=== PATIENT | male | born 1950 | race Caucasian/White ===

== ENCOUNTER 2018-11-01 17:38 | Inpatient (IN) | payer MEDICARE ==
[2018-11-01] MEDS ORDERED: traMADol HCl 50 MG TAB PO PRN (20:44)
[2018-11-01] MEDS: Lisinopril 10 MG TAB PO SCH (21:40)
[2018-11-01] MEDS: Pravastatin Sodium 40 MG TAB PO SCH (21:42)
[2018-11-01] MEDS: Apixaban 5 MG TAB PO SCH (21:44)
[2018-11-02] MEDS: Tamsulosin HCl 0.4 MG CAP PO SCH (08:37)
[2018-11-02] MEDS: Multivitamin W/ Minerals 1 TAB PO SCH (08:37)
[2018-11-02] MEDS: Aspirin 81 mg Enteric Coated Tablet PO SCH (08:38)
[2018-11-02] MEDS: Lisinopril 10 MG TAB PO SCH ×2 (08:38→21:26)
[2018-11-02] MEDS: Cyanocobalamin (Vitamin B-12) 1,000 MCG TAB PO SCH (08:38)
[2018-11-02] MEDS: Colchicine 0.6 MG TAB PO SCH (08:39)
[2018-11-02] MEDS: Furosemide 40 MG TAB PO SCH ×2 (08:40→16:58)
[2018-11-02] MEDS: glipiZIDE 5 MG TAB PO SCH ×2 (08:40→16:59)
[2018-11-02] MEDS: Atenolol 25 MG TAB PO SCH (08:41)
[2018-11-02] MEDS: Famotidine 20 MG TAB PO SCH (08:43)
[2018-11-02] MEDS: Apixaban 5 MG TAB PO SCH ×2 (08:45→21:25)
[2018-11-02] MEDS ORDERED: RANITIDINE HCL 75 MG PO SCH (09:00)
[2018-11-02] MEDS ORDERED: Pioglitazone HCl 15 MG TAB PO SCH (09:00)
[2018-11-02] MEDS: HYDROcodone/Acetaminophen 10/325 mg Tablet PO PRN ×2 (17:02→21:25)
[2018-11-02] MEDS ORDERED: Bisacodyl 10 MG SUPP PR PRN (18:06)
[2018-11-02 19:28] LABS: #Basophils 0.1 thou/uL (0.0-0.2); #Eosinphils 0.6 thou/uL (0.0-0.7); #Monocytes 0.9 thou/uL (0.11-0.59); #Neutrophils 10.8 thou/uL (1.40-6.50); %Basophils 0.6 % (0.0-1.0); %Eosinophils 3.9 % (0.0-10.0); %Lymphocytes 14.1 % (21.0-51.0); %Monocytes 6.2 % (0.0-10.0); %Neutrophils 75.3 % (42.0-75.0); Hemoglobin 9.6 g/dL (14.0-18.0); Mean Corpuscular Hemoglobin 30.8 pg (27.0-31.0); Mean Corpuscular Volume 93.5 fL (78.0-98.0); Mean Platelet Volume 7.2 fL (7.4-10.4); Platelet Count 270 thou/uL (130-400); RBC Distribution Width 15.3 % (11.5-14.5); Red Blood Cell (RBC) Count 3.12 mill/uL (4.70-6.10); White Blood Cell (WBC) Count 14.3 thou/uL (4.8-10.8)
[2018-11-02 19:57] LABS: ALT (SGPT) 14 U/L (8-55); AST (SGOT) 10 U/L (5-34); Albumin 3.4 g/dL (3.4-4.8); Alkaline Phosphatase 78 U/L (40-150); Anion Gap 14 mmol/L (10-20); BUN (Urea Nitrogen) 51 mg/dL (8.4-25.7); Bilirubin, Total 0.4 mg/dL (0.2-1.2); Calc. Creatinine Clearance 72 mL/min (70-130); Calcium 9.3 mg/dL (7.8-10.44); Carbon Dioxide 26 mmol/L (23-31); Chloride 101 mmol/L (98-107); Estimated GFR-MDRD 33; Globulin 2.7 g/dL (2.4-3.5); Glucose 209 mg/dL (80-115); Potassium 3.9 mmol/L (3.5-5.1); Protein, Total 6.1 g/dL (5.8-8.1); Sodium 137 mmol/L (136-145); Uric Acid 11.7 mg/dL (3.5-7.2)
[2018-11-02] MEDS: Pravastatin Sodium 40 MG TAB PO SCH (21:26)
[2018-11-03] MEDS: HYDROcodone/Acetaminophen 10/325 mg Tablet PO PRN ×2 (01:26→19:59)
[2018-11-03] MEDS ORDERED: Dextrose 50% Abboject 50 ML SYRINGE SLOW IVP PRN (06:04)
[2018-11-03] MEDS ORDERED: Dextrose 5% in Water 1,000 ML IV PRN (06:04)
[2018-11-03] MEDS: HumaLOG 300 UNITS/3 ML VIAL SC PRN ×4 (06:23→19:58)
--- NOTE | 2018-11-03 06:37 | PRG ---
DATE OF SERVICE: 11/02/[address] Arielle White. SUBJECTIVE: The patient feels well. No complaints. Controlled pain on tramadol. He is asking about his diuretics and explained that he is requiring diuretics with stable chronic kidney disease stage 4 to keep him from becoming more edematous. He is denying shortness of breath or chest pain. OBJECTIVE: VITAL SIGNS: Shows temperature of 98.2, pulse 62, respirations 18, O2 saturation of 96% on room air, blood pressure 103/51. LUNGS: Clear. CARDIAC: Showed regular rhythm. ABDOMEN: Soft and nontender, but obese. SKIN/EXTREMITIES: Showed 1+ edema of the left leg with decreased pedal pulses. LABORATORY DATA: Shows white count still elevated at 14,300, hematocrit 29, hemoglobin 9.6. Sodium 137, potassium 3.9, chloride 101, bicarb 26, BUN 51, creatinine 2.04, glucose 209. Uric acid 11.7, calcium 9.3, total bilirubin 0.4, AST 10, ALT 14, albumin 3.4, globulin 2.7. Right ghjbl-wja-iabw amputation has bandage with minimal tenderness and swelling. ASSESSMENT: 1. Uncontrolled diabetes on pioglitazone and glipizide, and we will discuss insulin therapy with the patient and start on sliding scale. 2. Gout with persistent hyperuricemia despite being on Uloric in the past, although this is not available at this time. We will hopefully see if the patient can obtain it from home. 3. Paroxysmal atrial fibrillation with rate controlled on anticoagulation, asymptomatic at this time. 4. Recurrent deep vein thrombosis, pulmonary embolus, on anticoagulation. 5. Coronary artery disease, asymptomatic at this time. 6. Benign prostatic hypertrophy, stable on tamsulosin. PLAN: 1. Repeat basic metabolic profile, uric acid in the a.m. and attempt to obtain Uloric. 2. Increase furosemide to 80 twice daily, this is what the patient was taking previously. We will monitor renal function closely. 3. Start sliding scale. Monitor Accu-Cheks. 4. Start PT and OT on Sunday. Job ID: [id number]
--- NOTE | 2018-11-03 08:48 | PRG ---
DATE OF SERVICE: 11/03/2018 SUBJECTIVE: The patient is sitting up in the bed. He states he is having persistent pain in his right BKA stump and did not sleep well last night. However, he states he does not sleep well at all in the hospital ever. He has had no fever, chills, or sweats. He does state that he has had to use his personal febuxostat medication they cannot receive it, and he has not received it here also, and we will attempt to get another bottle from home. He also states that he does not wish to be on a lactose-free diet as he will take Lactaid as needed from his personal supply, and finally, he states that he was not taking pioglitazone regularly at home and would like to only take the glipizide and sliding scale here. OBJECTIVE: VITAL SIGNS: Show blood pressure is 96/53, temperature is 98, pulse 62, respirations 18, and O2 sats 96% on room air. LUNGS: Clear. CARDIAC: Shows regular rhythm. ABDOMEN: Obese and nontender. SKIN/EXTREMITIES: Show right BKA stump undressed and appears to be healing well with no erythema, had only minimal drainage and tenderness. ASSESSMENT: 1. Resolving right below-knee amputation with no evidence of an infection despite persistent elevation of white count, and we will repeat white count in the a.m., and may reconsider oral antibiotics. 2. Type 2 diabetes with a fair control on sliding scale, and we will continue this as the patient wishes to discontinue his pioglitazone as he was not taking this routinely at home. 3. Chronic kidney disease, stage 4, stable, GFR of 30 to 33, and we will continue furosemide 80 twice daily as he was taking previously. 4. Paroxysmal atrial fibrillation, appears to be in regular rhythm at this time. 5. Recurrent deep vein thrombosis, prophylaxis on apixaban. PLAN: 1. Discontinue lactose-free diet. 2. Discontinue pioglitazone at the patient's request. Continue sliding scale. 3. Repeat CBC and basic metabolic profile in the a.m. 4. Continue wound care and start PT and OT tomorrow. Job ID: [id number]
[2018-11-03] MEDS ORDERED: Furosemide 80 MG TAB PO SCH (09:00)
--- NOTE | 2018-11-03 09:14 | HP ---
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 He has had no complications and has been admitted to [facility] Skilled Unit for further PT and OT. He does have comorbidities as mentioned above of recurrent DVTs and is on chronic anticoagulation. He also has significant chronic kidney disease stage 4 with a GFR around 30 and has been monitoring closely with Nephrology, Dr. Wilson, on furosemide 80 mg a day for his recurrent bilateral leg edema. He has history also of atrial fibrillation diagnosed in 2012 and atrial flutter diagnosed in 2017, requiring cardioversion but with paroxysmal atrial fib intermittently since that time. He has had a cardiac PET scan in January 2018, showing a reversible anterior defect consistent with an ischemia but with normal LV systolic function with EF of 55% to 60%. He has been found to have significant peripheral vascular disease, but because of his chronic kidney disease, it was felt that arteriograms would possibly cause him to convert to end-stage renal disease and therefore this was not done. He also has a history of aortic sclerosis without stenosis diagnosed in 2016 and had pulmonary embolus in 2012. Finally, he has a history also of hyperlipidemia and benign prostatic hypertrophy. PAST MEDICAL HISTORY: He also has a history of gout. PAST SURGICAL HISTORY: Positive for vasectomy, arthroscopy, multiple right foot surgeries, correction of his post-polio defects, and a kidney and bladder surgery of unknown type in 2013 with urostomy. SOCIAL HISTORY: He lives alone. He has a past history of smoking, but none since 1977. He drinks rarely. ALLERGIES: HE HAS NO KNOWN ALLERGIES. MEDICATIONS: On presentation to [facility] included; 1. Apixaban 5 mg twice daily. 2. Aspirin 81 daily. 3. Atenolol 100 daily. 4. Colchicine 0.6 mg daily. 5. Uloric 80 mg daily. 6. Furosemide 80 mg twice daily. 7. Glipizide 10 mg twice daily. 8. Lisinopril 10 mg twice daily. 9. Pioglitazone 15 mg daily. 10. Pravastatin 40 mg nightly. 11. Ranitidine 75 mg daily. 12. Tamsulosin 0.4 mg daily. 13. Tramadol 50 mg every 6 hours as needed for pain. REVIEW OF SYSTEMS: HEENT: Denies any headaches, dizziness, change in vision or hearing, hoarseness, or dysphagia. PULMONARY: Denies any cough, sputum production, recent pneumonia, asthma, tuberculosis. CARDIOVASCULAR: Denies any chest pain or dyspnea at rest, but is wheelchair-bound and nonambulatory secondary to his BKA and previous polio. GASTROINTESTINAL: He denies nausea, vomiting, diarrhea, constipation, or abdominal pain. GENITOURINARY: He has some mild decreased stream and nocturia, but no dysuria or hematuria. MUSCULOSKELETAL: He has a healing right eqpyh-elp-cnkf amputation with no particular swelling, erythema, that is managed. NEUROLOGIC: He has a decreased strength in the left leg but with normal sensation. PHYSICAL EXAMINATION: GENERAL: The patient is a middle-aged obese white male, in no acute distress at rest, oriented x3 and cooperative. VITAL SIGNS: Show a temperature of 97.5, pulse 60, respirations 18, O2 sats 100% on room air, and blood pressure is 115/61. HEENT: Pupils are equal, round, and reactive to light and accommodation. Sclerae are anicteric. Conjunctivae are pale. Oral mucous membranes are well hydrated. NECK: Supple. There are nodes or masses. JVP is not elevated. LUNGS: Clear with decreased breath sounds in the bases. CARDIAC: Shows irregular rhythm. No gallops or murmurs. ABDOMEN: Obese and nontender. SKIN/EXTREMITIES: Show healing right bxsll-jiq-geoj amputation, right leg. Trace edema of the left leg. Decreased pedal pulse on the left. NEUROLOGIC: Cranial nerves intact. Deep tendon reflex 2+ and equal. There are absent Babinski's. LABORATORY DATA: Laboratory not done on admission. Most recent laboratories do show a creatinine of 2.4 at [facility] and these will be repeated in the a.m. ASSESSMENT AND PLAN: 1. Severe peripheral vascular disease, status post right agzsz-qmi-gafa amputation for ischemic gangrene, appears to be healing well. 2. Chronic kidney disease, stage 4, being followed by Nephrology and we will follow closely. 3. Recurrent edema, on furosemide apparently with the consent of Nephrology and primary care physician and we will continue on this and monitor renal function to maintain GFR of a stable rate of 30. 4. Chronic gout, on Uloric and we will check uric acid level, appears to be asymptomatic. 5. Paroxysmal atrial fibrillation, on rate control and anticoagulation with apixaban with no symptoms at this time. 6. Recurrent deep vein thrombosis and pulmonary embolus, being prophylaxed with apixaban. 7. Coronary artery disease with abnormal PET scan with mild ventricular inferior ischemia, but with normal ejection fraction of 55% to 60%. 8. Type 2 diabetes, fairly controlled on pioglitazone and glipizide and will continue on this, we will monitor with [employer]. Job ID: [id number]
[2018-11-03] MEDS: Furosemide 80 MG TAB PO SCH ×2 (09:28→14:14)
[2018-11-03] MEDS: Lisinopril 10 MG TAB PO SCH ×2 (09:28→19:59)
[2018-11-03] MEDS: Cyanocobalamin (Vitamin B-12) 1,000 MCG TAB PO SCH (09:28)
[2018-11-03] MEDS: Tamsulosin HCl 0.4 MG CAP PO SCH (09:29)
[2018-11-03] MEDS: Famotidine 20 MG TAB PO SCH (09:29)
[2018-11-03] MEDS: Multivitamin W/ Minerals 1 TAB PO SCH (09:29)
[2018-11-03] MEDS: Aspirin 81 mg Enteric Coated Tablet PO SCH (09:30)
[2018-11-03] MEDS: glipiZIDE 5 MG TAB PO SCH ×2 (09:30→17:07)
[2018-11-03] MEDS: Apixaban 5 MG TAB PO SCH ×2 (09:30→19:59)
[2018-11-03] MEDS: Colchicine 0.6 MG TAB PO SCH (09:30)
[2018-11-03] MEDS: Atenolol 25 MG TAB PO SCH (09:31)
[2018-11-03] MEDS: Pravastatin Sodium 40 MG TAB PO SCH (20:00)
[2018-11-04 05:33] LABS: #Basophils 0.1 thou/uL (0.0-0.2); #Eosinphils 0.7 thou/uL (0.0-0.7); #Lymphocytes 1.8 thou/uL (1.20-3.40); #Monocytes 0.8 thou/uL (0.11-0.59); #Neutrophils 7.5 thou/uL (1.40-6.50); %Basophils 1.1 % (0.0-1.0); %Lymphocytes 16.6 % (21.0-51.0); %Monocytes 7.6 % (0.0-10.0); %Neutrophils 68.8 % (42.0-75.0); Hemoglobin 9.5 g/dL (14.0-18.0); Mean Corpuscular HGB CONC 31.8 g/dL (32.0-36.0); Mean Corpuscular Volume 94.4 fL (78.0-98.0); Mean Platelet Volume 7.5 fL (7.4-10.4); Platelet Count 246 thou/uL (130-400); RBC Distribution Width 15.4 % (11.5-14.5); Red Blood Cell (RBC) Count 3.17 mill/uL (4.70-6.10); White Blood Cell (WBC) Count 10.9 thou/uL (4.8-10.8)
[2018-11-04 05:47] LABS: Anion Gap 15 mmol/L (10-20); BUN (Urea Nitrogen) 56 mg/dL (8.4-25.7); Calc. Creatinine Clearance 69 mL/min (70-130); Carbon Dioxide 22 mmol/L (23-31); Chloride 105 mmol/L (98-107); Estimated GFR-MDRD 31; Glucose 194 mg/dL (80-115); Sodium 138 mmol/L (136-145)
[2018-11-04] MEDS: HumaLOG 300 UNITS/3 ML VIAL SC PRN ×2 (05:52→12:36)
[2018-11-04] MEDS: Apixaban 5 MG TAB PO SCH ×2 (08:10→20:07)
[2018-11-04] MEDS: glipiZIDE 5 MG TAB PO SCH ×2 (08:10→17:03)
[2018-11-04] MEDS: Atenolol 25 MG TAB PO SCH (08:11)
[2018-11-04] MEDS: Aspirin 81 mg Enteric Coated Tablet PO SCH (08:11)
[2018-11-04] MEDS: Colchicine 0.6 MG TAB PO SCH (08:12)
[2018-11-04] MEDS: Famotidine 20 MG TAB PO SCH (08:12)
[2018-11-04] MEDS: Cyanocobalamin (Vitamin B-12) 1,000 MCG TAB PO SCH (08:12)
[2018-11-04] MEDS: Furosemide 80 MG TAB PO SCH ×2 (08:13→14:52)
[2018-11-04] MEDS: Lisinopril 10 MG TAB PO SCH ×2 (08:13→20:07)
[2018-11-04] MEDS: Multivitamin W/ Minerals 1 TAB PO SCH (08:14)
[2018-11-04] MEDS: HYDROcodone/Acetaminophen 10/325 mg Tablet PO PRN ×2 (08:14→20:06)
[2018-11-04] MEDS: Tamsulosin HCl 0.4 MG CAP PO SCH (08:14)
--- NOTE | 2018-11-04 14:01 | PRG ---
DATE OF SERVICE: 11/04/2018 SUBJECTIVE: Mr. Joe is doing well. He is up in his bed. Denies any fever, chills, chest pain, or shortness of breath. He is tolerating his medications. No family at bedside. He denies any increasing pain at this time, any drainage, no redness. OBJECTIVE: GENERAL: He is afebrile. Heart rate is 58, respirations 18, oxygen saturation 97% on room air, blood pressure 132/58. CARDIOVASCULAR: S1 and S2 plus. RESPIRATORY: Normal vesicular breath sounds. ABDOMEN: Soft, obese, nontender. Bowel sounds heard in all quadrants. EXTREMITIES: Without cyanosis or clubbing. Right BKA stump with dressing. Healed scab over the posterior aspect of his left calf. He apparently also has a superficial abrasion/decubitus in his right gluteal region close to his scrotum. CENTRAL NERVOUS SYSTEM: Generalized weakness. LABORATORY VALUES: Sodium 138, potassium 4.0, BUN and creatinine of 56 and 2.14. Blood sugars are 222, 212, 211, 209. White count is down to 10.9, H and H is 9.5 and 29.9. IMPRESSION: 1. Right leg ischemic necrosis and gangrene, requiring right below knee amputation. 2. Chronic kidney disease, stage 4. 3. Diabetes mellitus type 2. 4. Atrial fibrillation, on anticoagulation. 5. Gout. 6. Morbid obesity. 7. Dyslipidemia. 8. Benign prostatic hypertrophy. 9. Lower extremity venous insufficiency and history of post-polio syndrome. PLAN: 1. Continue current medications. 2. Consult Wound Care for care of his stump incision. 3. 1800 calorie heart healthy ADA diet. 4. The patient is tolerating regular diet and states he does not want lactose-free. 5. DVT prophylaxis. He is on apixaban. 6. Stress ulcer prophylaxis. He is on Zantac. 7. Decubitus precautions. 8. Physical Therapy evaluation and treatment. 9. Routine laboratory values. 10. Encourage the patient to participate with therapy. 11. No family at bedside. 12. Discussed with the patient and nursing. Job ID: [id number]
[2018-11-04] MEDS: Pravastatin Sodium 40 MG TAB PO SCH (20:05)
[2018-11-05] MEDS: HYDROcodone/Acetaminophen 10/325 mg Tablet PO PRN ×4 (03:46→20:56)
[2018-11-05] MEDS: glipiZIDE 5 MG TAB PO SCH ×2 (08:23→16:33)
[2018-11-05] MEDS: Apixaban 5 MG TAB PO SCH ×2 (08:24→20:24)
[2018-11-05] MEDS: Colchicine 0.6 MG TAB PO SCH (08:24)
[2018-11-05] MEDS: Aspirin 81 mg Enteric Coated Tablet PO SCH (08:24)
[2018-11-05] MEDS: Multivitamin W/ Minerals 1 TAB PO SCH (08:25)
[2018-11-05] MEDS: Lisinopril 10 MG TAB PO SCH ×2 (08:25→20:24)
[2018-11-05] MEDS: Furosemide 80 MG TAB PO SCH ×2 (08:25→15:00)
[2018-11-05] MEDS: Febuxostat [Uloric] 80 MG PO SCH (08:25)
[2018-11-05] MEDS: Famotidine 20 MG TAB PO SCH (08:25)
[2018-11-05] MEDS: Cyanocobalamin (Vitamin B-12) 1,000 MCG TAB PO SCH (08:25)
[2018-11-05] MEDS: Tamsulosin HCl 0.4 MG CAP PO SCH (08:26)
[2018-11-05] MEDS: Atenolol 25 MG TAB PO SCH (08:31)
[2018-11-05] MEDS: HumaLOG 300 UNITS/3 ML VIAL SC PRN ×3 (11:14→20:22)
--- NOTE | 2018-11-05 15:41 | PRG ---
DATE OF SERVICE: 11/05/2018 SUBJECTIVE: Mr. Joe is doing the same. Denies any complaints. Wound Care assisted his incision and he apparently had some Xeroform on it. They are not sure what to do. I advised them to contact the surgeon Dr. Kennedy to find out exactly what kind of wound care it needs and if it is just a routine, then I am pretty sure that nursing can manage it. The patient denies any fever or chills. No concerns or questions. No family at bedside. OBJECTIVE: VITAL SIGNS: He is afebrile. Heart rate is 57, respirations are 20, oxygen saturation 98%, blood pressure 103/59. CARDIOVASCULAR: S1, S2 plus. RESPIRATORY: Normal vesicular breath sounds. ABDOMEN: Soft, obese, nontender. Bowel sounds heard in all four quadrants. EXTREMITIES: Without cyanosis, clubbing. Right BKA. IMPRESSION: 1. Peripheral vascular disease with gangrene requiring right below-knee amputation. 2. Chronic kidney disease, stage 4. 3. Diabetes mellitus type 2. 4. Atrial fibrillation, on Eliquis. 5. Gout. 6. Morbid obesity. 7. Dyslipidemia. 8. Benign prostatic hypertrophy. 9. Lower extremity venous insufficiency. 10. Postpolio syndrome. PLAN: 1. Continue current medications. 2. I discussed with Finch at Wound Care. She is going to contact Dr. Kennedy to find out exactly what he wants to be done with the incision. If it is just routine care, then she is going to inform nursing and have them manage it. 3. 1800 calorie heart-healthy ADA diet. 4. DVT and stress ulcer prophylaxis. 5. Decubitus precautions. 6. Continue Eliquis and his Uloric from home. 7. Colchicine p.r.n. 8. Routine laboratory values. 9. Discussed with the patient and nursing in detail. All questions answered. Job ID: [id number]
[2018-11-05] MEDS: Pravastatin Sodium 40 MG TAB PO SCH (20:25)
[2018-11-06 05:16] LABS: #Basophils 0.1 thou/uL (0.0-0.2); #Eosinphils 0.6 thou/uL (0.0-0.7); #Monocytes 0.9 thou/uL (0.11-0.59); #Neutrophils 7.5 thou/uL (1.40-6.50); %Basophils 0.9 % (0.0-1.0); %Eosinophils 5.5 % (0.0-10.0); %Lymphocytes 18.3 % (21.0-51.0); %Monocytes 7.6 % (0.0-10.0); %Neutrophils 67.7 % (42.0-75.0); Hemoglobin 9.3 g/dL (14.0-18.0); Mean Corpuscular HGB CONC 31.7 g/dL (32.0-36.0); Mean Corpuscular Volume 94.7 fL (78.0-98.0); Mean Platelet Volume 7.4 fL (7.4-10.4); Platelet Count 233 thou/uL (130-400); RBC Distribution Width 15.5 % (11.5-14.5); Red Blood Cell (RBC) Count 3.08 mill/uL (4.70-6.10); White Blood Cell (WBC) Count 11.1 thou/uL (4.8-10.8)
[2018-11-06] MEDS: HumaLOG 300 UNITS/3 ML VIAL SC PRN ×2 (05:22→12:21)
[2018-11-06 05:29] LABS: Anion Gap 14 mmol/L (10-20); BUN (Urea Nitrogen) 59 mg/dL (8.4-25.7); Calc. Creatinine Clearance 60 mL/min (70-130); Calcium 9.1 mg/dL (7.8-10.44); Carbon Dioxide 23 mmol/L (23-31); Chloride 106 mmol/L (98-107); Estimated GFR-MDRD 26; Glucose 190 mg/dL (80-115); Potassium 4.3 mmol/L (3.5-5.1); Sodium 139 mmol/L (136-145)
[2018-11-06] MEDS: glipiZIDE 5 MG TAB PO SCH ×2 (07:30→15:45)
[2018-11-06] MEDS: Colchicine 0.6 MG TAB PO SCH (09:22)
[2018-11-06] MEDS: Atenolol 25 MG TAB PO SCH (09:22)
[2018-11-06] MEDS: Furosemide 80 MG TAB PO SCH ×2 (09:22→14:45)
[2018-11-06] MEDS: Tamsulosin HCl 0.4 MG CAP PO SCH (09:23)
[2018-11-06] MEDS: Cyanocobalamin (Vitamin B-12) 1,000 MCG TAB PO SCH (09:23)
[2018-11-06] MEDS: Aspirin 81 mg Enteric Coated Tablet PO SCH (09:24)
[2018-11-06] MEDS: Multivitamin W/ Minerals 1 TAB PO SCH (09:24)
[2018-11-06] MEDS: Apixaban 5 MG TAB PO SCH ×2 (09:24→20:39)
[2018-11-06] MEDS: Famotidine 20 MG TAB PO SCH (09:24)
[2018-11-06] MEDS: Lisinopril 10 MG TAB PO SCH ×2 (09:25→20:40)
[2018-11-06] MEDS: Febuxostat [Uloric] 80 MG PO SCH (09:26)
[2018-11-06] MEDS: HYDROcodone/Acetaminophen 10/325 mg Tablet PO PRN ×3 (09:31→20:43)
[2018-11-06] MEDS: Pravastatin Sodium 20 MG TAB PO SCH (20:41)
[2018-11-06] MEDS: POTASSIUM CITRATE 5 MEQ PO SCH (20:41)
[2018-11-07] MEDS: HumaLOG 300 UNITS/3 ML VIAL SC PRN ×2 (05:56→11:49)
[2018-11-07] MEDS: glipiZIDE 5 MG TAB PO SCH ×2 (07:36→14:05)
[2018-11-07] MEDS: POTASSIUM CITRATE 5 MEQ PO SCH ×3 (08:35→20:25)
[2018-11-07] MEDS: Febuxostat [Uloric] 80 MG PO SCH (08:35)
[2018-11-07] MEDS: Cyanocobalamin (Vitamin B-12) 1,000 MCG TAB PO SCH (08:35)
[2018-11-07] MEDS: Lisinopril 10 MG TAB PO SCH ×3 (08:36→20:26)
[2018-11-07] MEDS: Apixaban 5 MG TAB PO SCH ×2 (08:36→20:22)
[2018-11-07] MEDS: Atenolol 25 MG TAB PO SCH (08:36)
[2018-11-07] MEDS: Aspirin 81 mg Enteric Coated Tablet PO SCH (08:36)
[2018-11-07] MEDS: Famotidine 20 MG TAB PO SCH (08:37)
[2018-11-07] MEDS: Furosemide 80 MG TAB PO SCH ×2 (08:37→14:05)
[2018-11-07] MEDS: Tamsulosin HCl 0.4 MG CAP PO SCH (08:37)
[2018-11-07] MEDS: Multivitamin W/ Minerals 1 TAB PO SCH (08:37)
[2018-11-07] MEDS: Colchicine 0.6 MG TAB PO SCH (08:37)
[2018-11-07] MEDS: Pravastatin Sodium 20 MG TAB PO SCH (20:22)
[2018-11-07] MEDS: HYDROcodone/Acetaminophen 10/325 mg Tablet PO PRN (20:23)
[2018-11-08] MEDS: glipiZIDE 5 MG TAB PO SCH ×2 (08:51→17:04)
[2018-11-08] MEDS: Atenolol 25 MG TAB PO SCH (08:52)
[2018-11-08] MEDS: Famotidine 20 MG TAB PO SCH (08:54)
[2018-11-08] MEDS: Cyanocobalamin (Vitamin B-12) 1,000 MCG TAB PO SCH (08:54)
[2018-11-08] MEDS: Furosemide 80 MG TAB PO SCH ×2 (08:55→15:01)
[2018-11-08] MEDS: Aspirin 81 mg Enteric Coated Tablet PO SCH (08:55)
[2018-11-08] MEDS: Tamsulosin HCl 0.4 MG CAP PO SCH (08:55)
[2018-11-08] MEDS: Colchicine 0.6 MG TAB PO SCH (08:56)
[2018-11-08] MEDS: Lisinopril 10 MG TAB PO SCH ×2 (08:56→20:22)
[2018-11-08] MEDS: Apixaban 5 MG TAB PO SCH ×2 (08:56→20:22)
[2018-11-08] MEDS: Multivitamin W/ Minerals 1 TAB PO SCH (08:56)
[2018-11-08] MEDS: Febuxostat [Uloric] 80 MG PO SCH (09:10)
[2018-11-08] MEDS: POTASSIUM CITRATE 5 MEQ PO SCH ×3 (09:11→20:25)
[2018-11-08] MEDS: HumaLOG 300 UNITS/3 ML VIAL SC PRN (12:05)
[2018-11-08] MEDS: Pravastatin Sodium 20 MG TAB PO SCH (20:22)
[2018-11-09] MEDS: HumaLOG 300 UNITS/3 ML VIAL SC PRN ×3 (05:14→16:34)
[2018-11-09] MEDS: Apixaban 5 MG TAB PO SCH ×2 (08:29→20:30)
[2018-11-09] MEDS: glipiZIDE 5 MG TAB PO SCH ×2 (08:29→16:34)
[2018-11-09] MEDS: Aspirin 81 mg Enteric Coated Tablet PO SCH (08:30)
[2018-11-09] MEDS: Atenolol 25 MG TAB PO SCH (08:30)
[2018-11-09] MEDS: Colchicine 0.6 MG TAB PO SCH (08:31)
[2018-11-09] MEDS: Famotidine 20 MG TAB PO SCH (08:32)
[2018-11-09] MEDS: Furosemide 80 MG TAB PO SCH ×2 (08:32→14:13)
[2018-11-09] MEDS: Cyanocobalamin (Vitamin B-12) 1,000 MCG TAB PO SCH (08:32)
[2018-11-09] MEDS: Lisinopril 10 MG TAB PO SCH (08:33)
[2018-11-09] MEDS: Multivitamin W/ Minerals 1 TAB PO SCH (08:33)
[2018-11-09] MEDS: POTASSIUM CITRATE 5 MEQ PO SCH ×3 (08:34→20:30)
[2018-11-09] MEDS: Febuxostat [Uloric] 80 MG PO SCH (08:34)
[2018-11-09] MEDS: Tamsulosin HCl 0.4 MG CAP PO SCH (08:35)
--- NOTE | 2018-11-09 16:52 | PRG ---
DATE OF SERVICE: 11/09/2018 SUBJECTIVE: Mr. Joe is doing the same. He apparently had a couple of bowel movements today, but they were just semisolid. I did order some Imodium in case it turns into loose stools. I also ordered a stool for C diff. I examined his stump incision and it looks healthy, just the midline area of the incision, there is a little bit of erythema, but the skin is not warm, not shiny, not tender, not fluctuant. It does not suggest any infection. There is no drainage. Again, discussed with the patient about possible antidepressant and he does not want to do it. He states that he is getting weaker, and I explained one of the reasons why he is getting weaker is because he is not doing any therapy. He also apparently is not drinking enough water, probably two cups a day, and I explained to him that that can cause low blood pressure and have him feeling weak as well. OBJECTIVE: VITAL SIGNS: He is afebrile, heart rate 58, respirations 20, oxygen saturation 97% on room air, blood pressure 115/58. CARDIOVASCULAR: S1 and S2 plus, bradycardia. RESPIRATORY: Normal vesicular breath sounds. ABDOMEN: Soft, obese, nontender. Bowel sounds heard in all quadrants. EXTREMITIES: Without cyanosis or clubbing. Right stump incision is healthy. LABORATORY DATA: Blood sugars are 160, 200, 155, and 221. IMPRESSION: 1. Status post right BKA for peripheral vascular disease and gangrene. 2. Diabetes mellitus, type 2. 3. Hypertension. 4. Dyslipidemia. 5. Benign prostatic hypertrophy. 6. Chronic kidney disease, stage 4. PLAN: 1. Adjust dosing of blood pressure medications. 2. Encourage p.o. water intake. 3. Continue stump care. 4. DVT and stress ulcer prophylaxis. 5. Decubitus precautions. 6. Nutritional support with 1800 calorie heart healthy ADA diet. 7. Accu-Cheks with sliding scale coverage. 8. Physical therapy. 9. Recheck laboratory values in the morning. Job ID: [id number]
--- NOTE | 2018-11-09 16:52 | PRG ---
DATE OF SERVICE: 11/07/2018 SUBJECTIVE: Mr. Joe is doing the same, but is depressed. He states that he does not want to take any medications for depression even though he knows he is depressed. He denies any suicidal or homicidal ideation. He also is not happy with therapy pushing him to do more. I had a long discussion with him and explained to him that the primary reason why he is here is to work with therapy and get stronger, so that, he can go back home. He states that he knows that he is not going to get better, and I tried to reason with him to at least try some medication for depression and see how he does and to focus on one day at a time, but I am not sure how successful I was. I did tell him that if he is not showing any improvement with therapy, then they will discharge him, and then we will have to figure out if he is safe to go home or whether he may need to be placed. No family at bedside. OBJECTIVE: VITAL SIGNS: He is afebrile. Heart rate is 58, respirations are 20, oxygen saturation is 96% on room air, blood pressure 129/83. CARDIOVASCULAR: S1, S2 plus. RESPIRATORY: Normal vesicular breath sounds. ABDOMEN: Soft, obese, and nontender. Bowel sounds heard in all quadrants. EXTREMITIES: Without cyanosis or clubbing. Right stump with dressing. CENTRAL NERVOUS SYSTEM: Generalized weakness. LABORATORY VALUES: White count is 11.1, H and H are 9.3 and 29.2. Sodium 139, potassium 4.3, BUN and creatinine 59 and 2.46. Blood sugars are 222, 194, 194, 147, 155. IMPRESSION: 1. Right ddpjm-zfy-ibnq amputation. 2. Diabetes mellitus, type 2. 3. Hypertension. 4. Morbid obesity. 5. Chronic kidney disease, stage 4. 6. Atrial fibrillation. 7. Dyslipidemia. 8. Benign prostatic hypertrophy. PLAN: 1. Advise the patient to continue to work with therapy, but just focus on one day at a time. 2. Advise him to think about medications for depression, and if he changes his mind, I will start him on some. 3. Continue 1800-calorie heart-healthy ADA diet. 4. DVT and stress ulcer prophylaxis. 5. Decubitus precautions. 6. Stump care. 7. Routine laboratory values. 8. Discussed with the patient and nursing in detail, and all questions answered. Job ID: [id number]
[2018-11-09] MEDS: Pravastatin Sodium 20 MG TAB PO SCH (20:30)
[2018-11-09] MEDS: Loperamide HCl 2 MG CAP PO PRN (20:31)
[2018-11-10 05:16] LABS: #Basophils 0.1 thou/uL (0.0-0.2); #Eosinphils 0.6 thou/uL (0.0-0.7); #Monocytes 0.8 thou/uL (0.11-0.59); #Neutrophils 8.3 thou/uL (1.40-6.50); %Basophils 0.7 % (0.0-1.0); %Eosinophils 4.8 % (0.0-10.0); %Monocytes 7.1 % (0.0-10.0); %Neutrophils 70.4 % (42.0-75.0); Hemoglobin 10.5 g/dL (14.0-18.0); Mean Corpuscular Hemoglobin 30.3 pg (27.0-31.0); Mean Platelet Volume 7.7 fL (7.4-10.4); Platelet Count 246 thou/uL (130-400); RBC Distribution Width 15.2 % (11.5-14.5); Red Blood Cell (RBC) Count 3.45 mill/uL (4.70-6.10); White Blood Cell (WBC) Count 11.8 thou/uL (4.8-10.8)
[2018-11-10 05:34] LABS: ALT (SGPT) 18 U/L (8-55); AST (SGOT) 14 U/L (5-34); Albumin 3.6 g/dL (3.4-4.8); Alkaline Phosphatase 75 U/L (40-150); Anion Gap 15 mmol/L (10-20); BUN (Urea Nitrogen) 50 mg/dL (8.4-25.7); Bilirubin, Total 0.5 mg/dL (0.2-1.2); Calc. Creatinine Clearance 75 mL/min (70-130); Calcium 9.5 mg/dL (7.8-10.44); Carbon Dioxide 24 mmol/L (23-31); Chloride 104 mmol/L (98-107); Estimated GFR-MDRD 34; Globulin 2.8 g/dL (2.4-3.5); Glucose 149 mg/dL (80-115); Potassium 3.6 mmol/L (3.5-5.1); Protein, Total 6.4 g/dL (5.8-8.1); Sodium 139 mmol/L (136-145)
[2018-11-10] MEDS: Apixaban 5 MG TAB PO SCH ×2 (08:07→20:53)
[2018-11-10] MEDS: Atenolol 25 MG TAB PO SCH (08:07)
[2018-11-10] MEDS: glipiZIDE 5 MG TAB PO SCH ×2 (08:07→16:47)
[2018-11-10] MEDS: Aspirin 81 mg Enteric Coated Tablet PO SCH (08:07)
[2018-11-10] MEDS: Famotidine 20 MG TAB PO SCH (08:08)
[2018-11-10] MEDS: Cyanocobalamin (Vitamin B-12) 1,000 MCG TAB PO SCH (08:08)
[2018-11-10] MEDS: Colchicine 0.6 MG TAB PO SCH (08:08)
[2018-11-10] MEDS: Febuxostat [Uloric] 80 MG PO SCH (08:09)
[2018-11-10] MEDS: Tamsulosin HCl 0.4 MG CAP PO SCH (08:09)
[2018-11-10] MEDS: POTASSIUM CITRATE 5 MEQ PO SCH ×3 (08:09→20:47)
[2018-11-10] MEDS: Multivitamin W/ Minerals 1 TAB PO SCH (08:09)
[2018-11-10] MEDS: Furosemide 80 MG TAB PO SCH ×2 (08:09→14:15)
[2018-11-10] MEDS: Loperamide HCl 2 MG CAP PO PRN (10:10)
[2018-11-10] MEDS: HumaLOG 300 UNITS/3 ML VIAL SC PRN ×2 (11:35→16:50)
[2018-11-10] MEDS: HYDROcodone/Acetaminophen 10/325 mg Tablet PO PRN (12:20)
--- NOTE | 2018-11-10 16:58 | PRG ---
DATE OF SERVICE: 11/10/2018 SUBJECTIVE: Mr. Joe is feeling better. His blood pressure is improved with reducing the dosage. He still has some semi solid/loose stools and he would like to take Imodium daily. He states this is a chronic problem for him and nothing new. He also has an ingrown toenail, which he wonders if we can do anything about. Unfortunately, we do not have a cattle dipper who comes here. No family at bedside. Discussed with nursing. OBJECTIVE: VITAL SIGNS: He is afebrile. Heart rate is 71, respirations 20, oxygen saturation 97% on room air, blood pressure 113/63. CARDIOVASCULAR: S1, S2 plus. RESPIRATORY: Normal vesicular breath sounds. ABDOMEN: Soft, obese, nontender. Bowel sounds heard in all four quadrants. EXTREMITIES: Without cyanosis, clubbing. Right BKA stump with a dressing. LABORATORY DATA: White count is 11.8, H and H is 10.5 and 31.7. Sodium 139, potassium 3.6, BUN and creatinine 50 and 1.97, which is improved. Blood sugars are 193, 210, 149, 149 and 242. IMPRESSION: 1. Gangrene and peripheral vascular disease requiring right BKA. 2. Diabetes mellitus type 2, well controlled. 3. Hypertension, improved. 4. Morbid obesity. 5. Chronic kidney disease, stage 4. 6. Atrial fibrillation, on long-term anticoagulation. 7. Dyslipidemia. 8. Benign prostatic hyperplasia. 9. Chronic loose stools/diarrhea. PLAN: 1. Imodium 2 tablets daily and p.r.n. 2. Continue 1800 calorie heart-healthy ADA diet. 3. DVT and stress ulcer prophylaxis. 4. Decubitus precautions. 5. Stump care. 6. Routine laboratory values. 7. Discussed with the patient and nursing in detail and all questions answered. Job ID: [id number]
[2018-11-10] MEDS: Lisinopril 10 MG TAB PO SCH ×2 (20:52→20:59)
[2018-11-10] MEDS: Pravastatin Sodium 20 MG TAB PO SCH (20:53)
[2018-11-11] MEDS: glipiZIDE 5 MG TAB PO SCH ×2 (07:51→16:29)
[2018-11-11] MEDS: Multivitamin W/ Minerals 1 TAB PO SCH (08:50)
[2018-11-11] MEDS: Atenolol 25 MG TAB PO SCH (08:50)
[2018-11-11] MEDS: Colchicine 0.6 MG TAB PO SCH (08:50)
[2018-11-11] MEDS: Cyanocobalamin (Vitamin B-12) 1,000 MCG TAB PO SCH (08:50)
[2018-11-11] MEDS: Furosemide 80 MG TAB PO SCH ×2 (08:50→14:29)
[2018-11-11] MEDS: Aspirin 81 mg Enteric Coated Tablet PO SCH (08:50)
[2018-11-11] MEDS: Famotidine 20 MG TAB PO SCH (08:50)
[2018-11-11] MEDS: Febuxostat [Uloric] 80 MG PO SCH (08:51)
[2018-11-11] MEDS: Apixaban 5 MG TAB PO SCH ×2 (08:51→21:30)
[2018-11-11] MEDS: Loperamide HCl 2 MG CAP PO SCH (08:51)
[2018-11-11] MEDS: Tamsulosin HCl 0.4 MG CAP PO SCH (08:51)
[2018-11-11] MEDS: POTASSIUM CITRATE 5 MEQ PO SCH ×3 (08:52→21:32)
[2018-11-11] MEDS: HumaLOG 300 UNITS/3 ML VIAL SC PRN ×2 (12:07→16:29)
--- NOTE | 2018-11-11 15:41 | PRG ---
DATE OF SERVICE: 11/11/2018 SUBJECTIVE: Mr. Joe is doing the same. Denies any complaints, resting comfortably. He does notice some tingling on and off in his left foot. His stool came back positive for C diff antigen, but negative for toxin. Plan is to recheck it in 24 hours. He is on isolation as a precaution. He apparently has had this problem on and off, and he had the test done even at the [facility] and it was negative. OBJECTIVE: VITAL SIGNS: He is afebrile. Heart rate 88, respirations 20, oxygen saturation 95% on room air, blood pressure 98/53. CARDIOVASCULAR: S1 and S2 plus. RESPIRATORY: Normal vesicular breath sounds. ABDOMEN: Soft, obese, nontender. Bowel sounds heard in all quadrants. EXTREMITIES: Without cyanosis or clubbing. I examined his left foot and there are no open areas. No warmth, erythema, tenderness, or swelling. Right BKA stump with dressing. IMPRESSION: 1. Right vebsq-loy-yhgc amputation for gangrene and peripheral vascular disease. 2. Diabetes mellitus, type 2. 3. Morbid obesity. 4. Hypertension. 5. Chronic kidney disease, stage 4. 6. Atrial fibrillation. 7. Dyslipidemia. 8. BPH. 9. Diarrhea with antigen positive and toxin negative stool result. PLAN: 1. Recheck stool for C. diff in 24 hours. 2. Contact isolation as a precaution. 3. Hold off on any antibiotics. 4. Continue stump care. 5. DVT and stress ulcer prophylaxis. 6. Decubitus precaution. 7. 1800-calorie heart healthy ADA diet. 8. Therapy as tolerated. No family at bedside. Job ID: [id number]
[2018-11-11] MEDS: Lisinopril 10 MG TAB PO SCH (21:31)
[2018-11-11] MEDS: Pravastatin Sodium 20 MG TAB PO SCH (21:31)
[2018-11-12] MEDS: glipiZIDE 5 MG TAB PO SCH ×2 (07:47→16:37)
[2018-11-12] MEDS: Febuxostat [Uloric] 80 MG PO SCH (08:58)
[2018-11-12] MEDS: POTASSIUM CITRATE 5 MEQ PO SCH ×3 (08:58→20:24)
[2018-11-12] MEDS: Multivitamin W/ Minerals 1 TAB PO SCH (08:59)
[2018-11-12] MEDS: Furosemide 80 MG TAB PO SCH ×2 (08:59→14:09)
[2018-11-12] MEDS: Cyanocobalamin (Vitamin B-12) 1,000 MCG TAB PO SCH (08:59)
[2018-11-12] MEDS: Famotidine 20 MG TAB PO SCH (08:59)
[2018-11-12] MEDS: Tamsulosin HCl 0.4 MG CAP PO SCH (08:59)
[2018-11-12] MEDS: Atenolol 25 MG TAB PO SCH (08:59)
[2018-11-12] MEDS: Aspirin 81 mg Enteric Coated Tablet PO SCH (08:59)
[2018-11-12] MEDS: Colchicine 0.6 MG TAB PO SCH (09:00)
[2018-11-12] MEDS: Apixaban 5 MG TAB PO SCH ×2 (09:00→20:24)
[2018-11-12] MEDS: Loperamide HCl 2 MG CAP PO SCH (09:05)
[2018-11-12] MEDS: HumaLOG 300 UNITS/3 ML VIAL SC PRN ×2 (11:06→16:33)
[2018-11-12] MEDS: Pravastatin Sodium 20 MG TAB PO SCH (20:24)
[2018-11-12] MEDS: Lisinopril 10 MG TAB PO SCH (20:24)
[2018-11-13] MEDS: HumaLOG 300 UNITS/3 ML VIAL SC PRN ×3 (05:16→17:09)
[2018-11-13] MEDS: glipiZIDE 5 MG TAB PO SCH ×2 (08:25→15:38)
[2018-11-13] MEDS: Colchicine 0.6 MG TAB PO SCH (08:26)
[2018-11-13] MEDS: Aspirin 81 mg Enteric Coated Tablet PO SCH (08:26)
[2018-11-13] MEDS: Cyanocobalamin (Vitamin B-12) 1,000 MCG TAB PO SCH (08:26)
[2018-11-13] MEDS: Apixaban 5 MG TAB PO SCH ×2 (08:26→20:13)
[2018-11-13] MEDS: Atenolol 25 MG TAB PO SCH (08:26)
[2018-11-13] MEDS: Famotidine 20 MG TAB PO SCH (08:27)
[2018-11-13] MEDS: Furosemide 80 MG TAB PO SCH ×2 (08:27→14:23)
[2018-11-13] MEDS: Loperamide HCl 2 MG CAP PO SCH (08:27)
[2018-11-13] MEDS: Multivitamin W/ Minerals 1 TAB PO SCH (08:27)
[2018-11-13] MEDS: Febuxostat [Uloric] 80 MG PO SCH (08:28)
[2018-11-13] MEDS: Tamsulosin HCl 0.4 MG CAP PO SCH (08:29)
[2018-11-13] MEDS: POTASSIUM CITRATE 5 MEQ PO SCH ×3 (08:29→20:14)
[2018-11-13] MEDS: HYDROcodone/Acetaminophen 10/325 mg Tablet PO PRN ×3 (08:30→20:15)
--- NOTE | 2018-11-13 14:16 | PRG ---
DATE OF SERVICE: 11/13/2018 SUBJECTIVE: Mr. Joe is doing the same. No further diarrhea. Doing well. He is wondering about the suture removal and I have informed nursing to contact Dr. Kennedy's office to schedule him for followup and see if he is comfortable having us remove the sutures or have nursing here remove the sutures. The patient continues to have occasional numbness in his left leg, but I really think it is because he is always leaning on that side. No family at bedside. OBJECTIVE: VITAL SIGNS: He is afebrile. Heart rate 67, respirations 20, oxygen saturation 96% on room air, blood pressure 114/57. CARDIOVASCULAR: S1 and S2 plus. RESPIRATORY: Normal vesicular breath sounds. ABDOMEN: Soft, nontender. Bowel sounds heard in all quadrants. EXTREMITIES: Without cyanosis, clubbing. Right BKA stump with dressing. LABORATORY DATA: His blood sugars are 176, 149, 210, 233, and 217. IMPRESSION: 1. Loose stools which have resolved. 2. Diabetes mellitus type 2. 3. Hypertension. 4. Dyslipidemia. 5. Morbid obesity. 6. Peripheral vascular disease and gangrene, status post right below-knee amputation. 7. Depression. Does not want any medications. PLAN: 1. Check with orthopedic surgeon as to follow up and suture removal. 2. Continue stump care. 3. 1800-calorie heart healthy ADA diet. 4. DVT and stress ulcer prophylaxis. 5. Decubitus precautions. 6. Routine laboratory values. 7. Discontinue contact isolation. Discussed with nursing in detail. All questions answered. Job ID: [id number]
[2018-11-13] MEDS: Lisinopril 10 MG TAB PO SCH (20:14)
[2018-11-13] MEDS: Pravastatin Sodium 20 MG TAB PO SCH (20:14)
[2018-11-14] MEDS: glipiZIDE 5 MG TAB PO SCH ×2 (08:14→16:24)
[2018-11-14] MEDS: Apixaban 5 MG TAB PO SCH ×2 (08:14→21:50)
[2018-11-14] MEDS: Aspirin 81 mg Enteric Coated Tablet PO SCH (08:14)
[2018-11-14] MEDS: Atenolol 25 MG TAB PO SCH (08:14)
[2018-11-14] MEDS: Cyanocobalamin (Vitamin B-12) 1,000 MCG TAB PO SCH (08:15)
[2018-11-14] MEDS: Loperamide HCl 2 MG CAP PO SCH (08:15)
[2018-11-14] MEDS: Furosemide 80 MG TAB PO SCH ×2 (08:15→14:18)
[2018-11-14] MEDS: Famotidine 20 MG TAB PO SCH (08:15)
[2018-11-14] MEDS: Colchicine 0.6 MG TAB PO SCH (08:15)
[2018-11-14] MEDS: Multivitamin W/ Minerals 1 TAB PO SCH (08:16)
[2018-11-14] MEDS: Tamsulosin HCl 0.4 MG CAP PO SCH (08:17)
[2018-11-14] MEDS: HYDROcodone/Acetaminophen 10/325 mg Tablet PO PRN ×2 (08:17→21:50)
[2018-11-14] MEDS: POTASSIUM CITRATE 5 MEQ PO SCH ×3 (08:17→21:51)
[2018-11-14] MEDS: Febuxostat [Uloric] 80 MG PO SCH (08:17)
[2018-11-14] MEDS: HumaLOG 300 UNITS/3 ML VIAL SC PRN (11:22)
--- NOTE | 2018-11-14 13:48 | PRG ---
DATE OF SERVICE: 11/14/2018 SUBJECTIVE: Mr. Joe is doing the same. He remains depressed, but he does not want any medications. He has an appointment scheduled with Orthopedic Surgery tomorrow for evaluation of his stump and possible suture removal. He is tolerating his medications. Denies any chest pain or shortness of breath. OBJECTIVE: VITAL SIGNS: He is afebrile, heart rate 59, respirations 16, oxygen saturation 96% on room air, blood pressure 97/54. CARDIOVASCULAR: S1 and S2 plus. RESPIRATORY: Normal vesicular breath sounds. ABDOMEN: Soft, obese, and nontender. Bowel sounds heard in all quadrants. EXTREMITIES: Without cyanosis or clubbing. Right BKA stump with dressing. LABORATORY DATA: Blood sugars are 164, 142, 128, and 258. IMPRESSION: 1. Diabetes mellitus, type 2. 2. Hypertension. 3. Dyslipidemia. 4. Peripheral vascular disease and gangrene, status post right wrgzz-bfz-itrc amputation. 5. Benign prostatic hypertrophy. 6. Depression. Does not want any medications. 7. Morbid obesity. PLAN: 1. Continue current medications. 2. 1800-calorie heart-healthy ADA diet. 3. DVT and stress ulcer prophylaxis. He is on Eliquis. 4. Decubitus precautions. 5. Routine laboratory values. 6. Physical therapy and occupational therapy, encourage the patient. 7. Stump care. 8. Follow up with Dr. Kennedy tomorrow. 9. No family at bedside. 10. Discussed with the patient and nursing in detail. All questions were answered. Job ID: [id number]
[2018-11-14] MEDS: Lisinopril 10 MG TAB PO SCH (21:48)
[2018-11-14] MEDS: Pravastatin Sodium 20 MG TAB PO SCH (21:49)
[2018-11-15] MEDS: glipiZIDE 5 MG TAB PO SCH ×2 (07:04→16:13)
[2018-11-15] MEDS: Cyanocobalamin (Vitamin B-12) 1,000 MCG TAB PO SCH (09:04)
[2018-11-15] MEDS: Tamsulosin HCl 0.4 MG CAP PO SCH (09:04)
[2018-11-15] MEDS: Aspirin 81 mg Enteric Coated Tablet PO SCH (09:04)
[2018-11-15] MEDS: Atenolol 25 MG TAB PO SCH (09:04)
[2018-11-15] MEDS: Multivitamin W/ Minerals 1 TAB PO SCH (09:04)
[2018-11-15] MEDS: Apixaban 5 MG TAB PO SCH ×2 (09:04→20:51)
[2018-11-15] MEDS: Famotidine 20 MG TAB PO SCH (09:05)
[2018-11-15] MEDS: Furosemide 80 MG TAB PO SCH ×2 (09:05→14:11)
[2018-11-15] MEDS: Loperamide HCl 2 MG CAP PO SCH (09:05)
[2018-11-15] MEDS: Colchicine 0.6 MG TAB PO SCH (09:10)
[2018-11-15] MEDS: Febuxostat [Uloric] 80 MG PO SCH (09:10)
[2018-11-15] MEDS: POTASSIUM CITRATE 5 MEQ PO SCH ×3 (09:10→20:53)
[2018-11-15] MEDS: HumaLOG 300 UNITS/3 ML VIAL SC PRN (16:56)
[2018-11-15] MEDS: Pravastatin Sodium 20 MG TAB PO SCH (20:50)
[2018-11-15] MEDS: HYDROcodone/Acetaminophen 10/325 mg Tablet PO PRN (20:50)
[2018-11-15] MEDS: Lisinopril 10 MG TAB PO SCH (20:51)
[2018-11-16] MEDS: Loperamide HCl 2 MG CAP PO SCH (08:48)
[2018-11-16] MEDS: glipiZIDE 5 MG TAB PO SCH ×2 (08:49→17:13)
[2018-11-16] MEDS: Atenolol 25 MG TAB PO SCH (08:53)
[2018-11-16] MEDS: Multivitamin W/ Minerals 1 TAB PO SCH (08:57)
[2018-11-16] MEDS: Cyanocobalamin (Vitamin B-12) 1,000 MCG TAB PO SCH (08:57)
[2018-11-16] MEDS: Furosemide 80 MG TAB PO SCH ×2 (08:57→15:19)
[2018-11-16] MEDS: Aspirin 81 mg Enteric Coated Tablet PO SCH (08:59)
[2018-11-16] MEDS: Tamsulosin HCl 0.4 MG CAP PO SCH (08:59)
[2018-11-16] MEDS: Colchicine 0.6 MG TAB PO SCH (08:59)
[2018-11-16] MEDS: POTASSIUM CITRATE 5 MEQ PO SCH ×3 (09:01→20:30)
[2018-11-16] MEDS: Febuxostat [Uloric] 80 MG PO SCH (09:02)
[2018-11-16] MEDS: HYDROcodone/Acetaminophen 10/325 mg Tablet PO PRN (09:08)
[2018-11-16] MEDS: Famotidine 20 MG TAB PO SCH (09:38)
[2018-11-16] MEDS: Apixaban 5 MG TAB PO SCH ×2 (09:38→20:28)
[2018-11-16] MEDS: HumaLOG 300 UNITS/3 ML VIAL SC PRN ×2 (11:49→17:14)
[2018-11-16] MEDS: Lisinopril 10 MG TAB PO SCH (20:28)
[2018-11-16] MEDS: Pravastatin Sodium 20 MG TAB PO SCH (20:28)
[2018-11-17] MEDS: glipiZIDE 5 MG TAB PO SCH ×2 (07:45→16:47)
[2018-11-17] MEDS: Febuxostat [Uloric] 80 MG PO SCH (08:45)
[2018-11-17] MEDS: POTASSIUM CITRATE 5 MEQ PO SCH ×3 (08:45→20:32)
[2018-11-17] MEDS: Famotidine 20 MG TAB PO SCH (08:46)
[2018-11-17] MEDS: Colchicine 0.6 MG TAB PO SCH (08:46)
[2018-11-17] MEDS: Apixaban 5 MG TAB PO SCH ×2 (08:46→20:32)
[2018-11-17] MEDS: Loperamide HCl 2 MG CAP PO SCH (08:46)
[2018-11-17] MEDS: Cyanocobalamin (Vitamin B-12) 1,000 MCG TAB PO SCH (08:46)
[2018-11-17] MEDS: Multivitamin W/ Minerals 1 TAB PO SCH (08:46)
[2018-11-17] MEDS: Aspirin 81 mg Enteric Coated Tablet PO SCH (08:47)
[2018-11-17] MEDS: Furosemide 80 MG TAB PO SCH ×2 (08:47→14:15)
[2018-11-17] MEDS: Atenolol 25 MG TAB PO SCH (08:47)
[2018-11-17] MEDS: Tamsulosin HCl 0.4 MG CAP PO SCH (08:47)
[2018-11-17] MEDS: HumaLOG 300 UNITS/3 ML VIAL SC PRN (16:47)
[2018-11-17] MEDS: Pravastatin Sodium 20 MG TAB PO SCH (20:32)
[2018-11-17] MEDS: Lisinopril 10 MG TAB PO SCH (20:33)
--- NOTE | 2018-11-17 23:08 | PRG ---
DATE OF SERVICE: 11/16/2018 SUBJECTIVE: The patient has no complaints and is due to see his orthopedic surgeon today. We will ask him questions. He has seen his orthopedic surgeon yesterday and did remove all of his sonu, sutures, and placed Steri-Strips. He is upset, however, with his care and feels like he still should not have his leg amputated. OBJECTIVE: VITAL SIGNS: Blood pressure is 101/58, temperature is 97, pulse 59, respirations 20, O2 sats 97% on room air. Accu-Cheks ranged from 146 to 189. LUNGS: Clear. CARDIAC: Regular rhythm. EXTREMITIES: Stump is nontender. ASSESSMENT AND PLAN: 1. Resolving right lelgp-pwh-xeap amputation, healing well. 2. Diabetes type 2. Fair control. 3. Hypertension, controlled to goal. 4. Benign prostatic hypertrophy. Asymptomatic. 5. Depression, worsening and causing the patient to be upset with physicians and staff. Job ID: [id number]
[2018-11-17] MEDS: Loperamide HCl 2 MG CAP PO PRN (23:21)
[2018-11-18] MEDS: Aspirin 81 mg Enteric Coated Tablet PO SCH (08:32)
[2018-11-18] MEDS: glipiZIDE 5 MG TAB PO SCH ×2 (08:32→17:58)
[2018-11-18] MEDS: Apixaban 5 MG TAB PO SCH ×2 (08:32→20:23)
[2018-11-18] MEDS: Atenolol 25 MG TAB PO SCH (08:33)
[2018-11-18] MEDS: Colchicine 0.6 MG TAB PO SCH (08:33)
[2018-11-18] MEDS: Cyanocobalamin (Vitamin B-12) 1,000 MCG TAB PO SCH (08:33)
[2018-11-18] MEDS: Multivitamin W/ Minerals 1 TAB PO SCH (08:34)
[2018-11-18] MEDS: Furosemide 80 MG TAB PO SCH ×2 (08:34→15:14)
[2018-11-18] MEDS: POTASSIUM CITRATE 5 MEQ PO SCH ×3 (08:34→20:24)
[2018-11-18] MEDS: Febuxostat [Uloric] 80 MG PO SCH (08:34)
[2018-11-18] MEDS: Famotidine 20 MG TAB PO SCH (08:34)
[2018-11-18] MEDS: Loperamide HCl 2 MG CAP PO SCH (08:34)
[2018-11-18] MEDS: Tamsulosin HCl 0.4 MG CAP PO SCH (08:35)
--- NOTE | 2018-11-18 14:05 | PRG ---
DATE OF SERVICE: 11/18/2018 SUBJECTIVE: Mr. Joe is doing the same. Denies any complaints. No further diarrhea. He went and saw Dr. Kennedy and had his sutures removed and Steri-Strips applied. He is having his weekly case conference with Therapy today and that will decide his further plans, whether he is improving enough to stay here and continue therapy or whether he needs to be discharged to a halfway facility or home. He apparently also has been having back issues and he saw Dr. Eng in August, had the MRIs done and he has not followed up with Dr. Eng and he is expecting Dr. Eng to call him with the results. I explained to him that if he has not heard anything, it is best for him to call. I did review those MRIs and it did show widespread degenerative joint disease as well as degenerative disk disease and explained to him that it is best that he talk to Dr. Eng personally and find out what options are and whether it is really causing him any issues. OBJECTIVE: VITAL SIGNS: He is afebrile. Heart rate 60, respirations 18, oxygen saturations 94% on room air, and blood pressure 93/50. CARDIOVASCULAR: S1 and S2 plus. RESPIRATORY: Normal vesicular breath sounds. ABDOMEN: Soft, obese, nontender. Bowel sounds heard in all quadrants. EXTREMITIES: Without cyanosis or clubbing. Right BKA stump with dressing. IMPRESSION: 1. Right etdkk-tyy-lznh amputation for peripheral vascular disease and gangrene. 2. Diabetes mellitus type 2. Blood sugars are 136, 248, 182, 185, and 145. 3. Hypertension. 4. Dyslipidemia. 5. Morbid obesity. 6. Widespread degenerative joint disease and disk disease in his cervical, thoracic, and lumbar spine. PLAN: 1. Continue current medications. 2. Await Case Management meeting, care plan meeting for a further plan. 3. The patient again refuses medicines for depression. 4. Advised the patient to follow with Dr. Eng. 5. Continue stump care. 6. 1800 calorie heart healthy ADA diet. 7. Routine laboratory values. 8. Poor long-term prognosis as long as the patient is not motivated to improve and seems like he always blames somebody or something else for his problems. No family at bedside. Job ID: [id number]
[2018-11-18] MEDS: Pravastatin Sodium 20 MG TAB PO SCH (20:21)
[2018-11-18] MEDS: Lisinopril 10 MG TAB PO SCH (20:22)
[2018-11-18] MEDS: HumaLOG 300 UNITS/3 ML VIAL SC PRN (20:23)
[2018-11-19] MEDS: glipiZIDE 5 MG TAB PO SCH ×2 (08:49→16:45)
[2018-11-19] MEDS: Atenolol 25 MG TAB PO SCH (08:50)
[2018-11-19] MEDS: Aspirin 81 mg Enteric Coated Tablet PO SCH (08:50)
[2018-11-19] MEDS: Apixaban 5 MG TAB PO SCH ×2 (08:50→20:23)
[2018-11-19] MEDS: Furosemide 80 MG TAB PO SCH ×2 (08:51→14:33)
[2018-11-19] MEDS: Loperamide HCl 2 MG CAP PO SCH (08:51)
[2018-11-19] MEDS: Famotidine 20 MG TAB PO SCH (08:51)
[2018-11-19] MEDS: Cyanocobalamin (Vitamin B-12) 1,000 MCG TAB PO SCH (08:51)
[2018-11-19] MEDS: Colchicine 0.6 MG TAB PO SCH (08:51)
[2018-11-19] MEDS: Multivitamin W/ Minerals 1 TAB PO SCH (08:52)
[2018-11-19] MEDS: Febuxostat [Uloric] 80 MG PO SCH (08:52)
[2018-11-19] MEDS: Tamsulosin HCl 0.4 MG CAP PO SCH (08:52)
[2018-11-19] MEDS: POTASSIUM CITRATE 5 MEQ PO SCH ×3 (08:52→20:23)
[2018-11-19] MEDS: HumaLOG 300 UNITS/3 ML VIAL SC PRN ×2 (12:36→20:26)
[2018-11-19] MEDS: Pravastatin Sodium 20 MG TAB PO SCH (20:23)
[2018-11-19] MEDS: Lisinopril 10 MG TAB PO SCH (20:24)
[2018-11-20] MEDS: HumaLOG 300 UNITS/3 ML VIAL SC PRN ×2 (06:03→12:25)
[2018-11-20] MEDS: Tamsulosin HCl 0.4 MG CAP PO SCH (08:41)
[2018-11-20] MEDS: Atenolol 25 MG TAB PO SCH (08:41)
[2018-11-20] MEDS: Multivitamin W/ Minerals 1 TAB PO SCH (08:41)
[2018-11-20] MEDS: Furosemide 80 MG TAB PO SCH ×2 (08:41→14:32)
[2018-11-20] MEDS: Cyanocobalamin (Vitamin B-12) 1,000 MCG TAB PO SCH (08:41)
[2018-11-20] MEDS: glipiZIDE 5 MG TAB PO SCH ×2 (08:42→15:32)
[2018-11-20] MEDS: Famotidine 20 MG TAB PO SCH (08:42)
[2018-11-20] MEDS: Apixaban 5 MG TAB PO SCH ×2 (08:42→20:07)
[2018-11-20] MEDS: Colchicine 0.6 MG TAB PO SCH (08:42)
[2018-11-20] MEDS: Loperamide HCl 2 MG CAP PO SCH (08:42)
[2018-11-20] MEDS: POTASSIUM CITRATE 5 MEQ PO SCH ×3 (08:43→20:07)
[2018-11-20] MEDS: Aspirin 81 mg Enteric Coated Tablet PO SCH (08:43)
[2018-11-20] MEDS: Febuxostat [Uloric] 80 MG PO SCH (08:43)
--- NOTE | 2018-11-20 14:11 | PRG ---
DATE OF SERVICE: 11/20/2018 SUBJECTIVE: Mr. Joe apparently did a little better with therapy, apparently took a couple of hops, did speak with Therapy and they are continuing to work with him. They do recommend he go to a [facility] facility prior to going home. He apparently had 1 loose stool 2 days ago, for which he took Imodium. No other problems. No family. OBJECTIVE: VITAL SIGNS: He is afebrile. Heart rate 61, respirations 20, oxygen saturation 98% on room air, blood pressure 118/54. CARDIOVASCULAR: S1, S2 plus. RESPIRATORY: Normal vesicular breath sounds. ABDOMEN: Soft, obese, nontender. Bowel sounds heard in all quadrants. EXTREMITIES: Without cyanosis or clubbing. Right leg BKA stump with dressing. IMPRESSION: 1. Right below-knee amputation, healing well. 2. Diabetes mellitus type 2. 3. Hypertension. 4. Morbid obesity. 5. Dyslipidemia. 6. Degenerative joint disease and disk disease in his cervical, thoracic, and lumbar spine. PLAN: 1. Continue current medications. 2. Continue to work with Therapy. 3. Discharge planning. 4. DVT and stress ulcer prophylaxis. He is on Eliquis. 5. Decubitus precautions. 6. Stump care. 7. A 1800-calorie heart healthy ADA diet. 8. Accu-Cheks with sliding scale coverage. 9. Routine labs for tomorrow, which is CBC and BMP. 10. Discussed with the patient in detail. Job ID: [id number]
[2018-11-20] MEDS: Lisinopril 10 MG TAB PO SCH (20:07)
[2018-11-20] MEDS: Pravastatin Sodium 20 MG TAB PO SCH (20:07)
[2018-11-20] MEDS: HYDROcodone/Acetaminophen 10/325 mg Tablet PO PRN (20:08)
[2018-11-21 05:29] LABS: #Basophils 0.1 thou/uL (0.0-0.2); #Eosinphils 0.6 thou/uL (0.0-0.7); #Lymphocytes 2.2 thou/uL (1.20-3.40); #Monocytes 0.9 thou/uL (0.11-0.59); %Eosinophils 5.3 % (0.0-10.0); %Lymphocytes 20.7 % (21.0-51.0); %Monocytes 8.1 % (0.0-10.0); Hemoglobin 11.1 g/dL (14.0-18.0); Mean Corpuscular HGB CONC 32.5 g/dL (32.0-36.0); Mean Corpuscular Hemoglobin 30.2 pg (27.0-31.0); Mean Corpuscular Volume 93.1 fL (78.0-98.0); Mean Platelet Volume 7.5 fL (7.4-10.4); Platelet Count 213 thou/uL (130-400); RBC Distribution Width 15.3 % (11.5-14.5); Red Blood Cell (RBC) Count 3.67 mill/uL (4.70-6.10); White Blood Cell (WBC) Count 10.7 thou/uL (4.8-10.8)
[2018-11-21 05:41] LABS: Anion Gap 13 mmol/L (10-20); BUN (Urea Nitrogen) 44 mg/dL (8.4-25.7); Calc. Creatinine Clearance 69 mL/min (70-130); Calcium 9.4 mg/dL (7.8-10.44); Carbon Dioxide 27 mmol/L (23-31); Chloride 101 mmol/L (98-107); Estimated GFR-MDRD 33; Glucose 128 mg/dL (80-115); Potassium 4.2 mmol/L (3.5-5.1); Sodium 137 mmol/L (136-145)
[2018-11-21] MEDS: glipiZIDE 5 MG TAB PO SCH ×2 (07:05→15:34)
[2018-11-21] MEDS: Cyanocobalamin (Vitamin B-12) 1,000 MCG TAB PO SCH (09:05)
[2018-11-21] MEDS: Aspirin 81 mg Enteric Coated Tablet PO SCH (09:06)
[2018-11-21] MEDS: Loperamide HCl 2 MG CAP PO SCH (09:06)
[2018-11-21] MEDS: Colchicine 0.6 MG TAB PO SCH (09:06)
[2018-11-21] MEDS: Furosemide 80 MG TAB PO SCH ×2 (09:06→14:33)
[2018-11-21] MEDS: Atenolol 25 MG TAB PO SCH (09:06)
[2018-11-21] MEDS: Tamsulosin HCl 0.4 MG CAP PO SCH (09:06)
[2018-11-21] MEDS: Apixaban 5 MG TAB PO SCH ×2 (09:06→21:27)
[2018-11-21] MEDS: Multivitamin W/ Minerals 1 TAB PO SCH (09:06)
[2018-11-21] MEDS: Famotidine 20 MG TAB PO SCH (09:06)
[2018-11-21] MEDS: Febuxostat [Uloric] 80 MG PO SCH (09:07)
[2018-11-21] MEDS: POTASSIUM CITRATE 5 MEQ PO SCH ×3 (09:08→21:28)
[2018-11-21] MEDS: HumaLOG 300 UNITS/3 ML VIAL SC PRN (12:41)
--- NOTE | 2018-11-21 18:03 | PRG ---
DATE OF SERVICE: 11/21/2018 SUBJECTIVE: Mr. Joe apparently had a couple of episodes of loose stools. They were able to get a sample and send it off for C. diff again. No nausea or vomiting. He is tolerating his diet. Laboratory values from this morning looks good. I explained to him that they started the process of sending a referral to alf facility, just in case, his insurance does not accept the plan of action and they do not approve any more days, but if they do approve, then he will stay here until the duration of the approval. No family at bedside. OBJECTIVE: VITAL SIGNS: He is afebrile. Heart rate 68, respirations 20, oxygen saturation 96% on room air, and blood pressure 99/58. CARDIOVASCULAR: S1, S2 plus. RESPIRATORY: Normal vesicular breath sounds. ABDOMEN: Soft, nontender, obese. Bowel sounds heard in all quadrants. EXTREMITIES: Without cyanosis or clubbing. Right BKA with dressing. LABORATORY DATA: Sodium 137, potassium 4.2, BUN and creatinine are 44 and 2.04. Blood sugars are 133, 262, 128, 141, and 182. White count is 10.7, H and H 11.1 and 34.2. IMPRESSION: 1. Status post right below-the knee amputation for peripheral vascular disease and gangrene. 2. Diabetes mellitus, type 2. 3. Hypertension. 4. Dyslipidemia. 5. Morbid obesity. 6. History of atrial fibrillation, on Eliquis. 7. Chronic kidney disease, stage 4. PLAN: 1. Continue 1800 calorie heart healthy ADA diet. 2. Continue PT/OT until insurance approval runs out. 3. Discharge planning. 4. DVT and stress ulcer prophylaxis. 5. Decubitus precautions. 6. Routine laboratory values. 7. Contact precautions. 8. Await stool for C diff. 9. Discussed with the patient in detail. All questions answered. Job ID: [id number]
[2018-11-21] MEDS: Pravastatin Sodium 20 MG TAB PO SCH (21:26)
[2018-11-21] MEDS: Lisinopril 10 MG TAB PO SCH (21:26)
[2018-11-22] MEDS: glipiZIDE 5 MG TAB PO SCH ×2 (07:31→16:12)
[2018-11-22] MEDS: Cyanocobalamin (Vitamin B-12) 1,000 MCG TAB PO SCH (08:56)
[2018-11-22] MEDS: Colchicine 0.6 MG TAB PO SCH (08:57)
[2018-11-22] MEDS: Multivitamin W/ Minerals 1 TAB PO SCH (08:57)
[2018-11-22] MEDS: Atenolol 25 MG TAB PO SCH (08:57)
[2018-11-22] MEDS: Loperamide HCl 2 MG CAP PO SCH (08:58)
[2018-11-22] MEDS: Aspirin 81 mg Enteric Coated Tablet PO SCH (08:58)
[2018-11-22] MEDS: Famotidine 20 MG TAB PO SCH (08:58)
[2018-11-22] MEDS: Tamsulosin HCl 0.4 MG CAP PO SCH (08:58)
[2018-11-22] MEDS: Furosemide 80 MG TAB PO SCH ×2 (08:58→14:27)
[2018-11-22] MEDS: Apixaban 5 MG TAB PO SCH ×2 (08:59→21:33)
[2018-11-22] MEDS: Febuxostat [Uloric] 80 MG PO SCH (08:59)
[2018-11-22] MEDS: POTASSIUM CITRATE 5 MEQ PO SCH ×3 (09:00→21:33)
[2018-11-22] MEDS: HumaLOG 300 UNITS/3 ML VIAL SC PRN (12:08)
[2018-11-22] MEDS: Lisinopril 10 MG TAB PO SCH (21:33)
[2018-11-22] MEDS: Pravastatin Sodium 20 MG TAB PO SCH (21:33)
[2018-11-23] MEDS: glipiZIDE 5 MG TAB PO SCH ×2 (08:42→17:22)
[2018-11-23] MEDS: Atenolol 25 MG TAB PO SCH (08:43)
[2018-11-23] MEDS: Apixaban 5 MG TAB PO SCH ×2 (08:43→20:46)
[2018-11-23] MEDS: Aspirin 81 mg Enteric Coated Tablet PO SCH (08:43)
[2018-11-23] MEDS: Colchicine 0.6 MG TAB PO SCH (08:44)
[2018-11-23] MEDS: Furosemide 80 MG TAB PO SCH ×2 (08:44→14:29)
[2018-11-23] MEDS: Cyanocobalamin (Vitamin B-12) 1,000 MCG TAB PO SCH (08:44)
[2018-11-23] MEDS: Famotidine 20 MG TAB PO SCH (08:44)
[2018-11-23] MEDS: POTASSIUM CITRATE 5 MEQ PO SCH ×3 (08:45→20:45)
[2018-11-23] MEDS: Tamsulosin HCl 0.4 MG CAP PO SCH (08:45)
[2018-11-23] MEDS: Multivitamin W/ Minerals 1 TAB PO SCH (08:45)
[2018-11-23] MEDS: Loperamide HCl 2 MG CAP PO SCH (08:45)
[2018-11-23] MEDS: Febuxostat [Uloric] 80 MG PO SCH (08:45)
[2018-11-23] MEDS: HYDROcodone/Acetaminophen 10/325 mg Tablet PO PRN (08:47)
--- NOTE | 2018-11-23 09:38 | PRG ---
DATE OF SERVICE: 11/23/2018 SUBJECTIVE: Mr. 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 He also has a history of chronic kidney disease stage 4, recurrent DVTs, recurrent right lower leg cellulitis with ischemia, necrosis, and gangrene. He did have a right akpzy-nax-nlow amputation done and was transferred here for continued IV antibiotics and physical therapy and occupational therapy. The patient did have a positive antigen for his C. diff approximately a week ago. His C. diff was repeated and now is negative toxin and antigen, and he is most happy about getting off his isolation. Subjectively, the patient states he is doing very well today and he is excited about getting off his isolation. He has no other complaints today. OBJECTIVE: VITAL SIGNS: Today, reveal blood pressure 107/64, pulse 60, respirations 18 to 20, O2 saturation 95% to 98% on room air, T-max 97.7. GENERAL: This is a well-developed, well-nourished, pleasant, obese white male, with no complaints today. HEENT: Reveals normocephalic and nontraumatic cranium. Pupils are equal, round, reactive. Extraocular movements are intact. Nose and throat are slightly dry. NECK: Supple without masses, nodes, or bruits. CHEST: Clear to auscultation. No rales, rhonchi, or wheezes are heard. HEART: Reveals a regular rate and rhythm without murmurs, gallops, or rubs. ABDOMEN: Obese, soft, nontender without organomegaly. Normal bowel sounds are noted. No rebound or guarding is noted. : Exam is deferred. EXTREMITIES: Reveal right BKA dressing without significant drainage. IMPRESSION: 1. Status post right below knee amputation. 2. Severe peripheral vascular disease with gangrene. 3. Diabetes, type 2. 4. Hypertension. 5. Hyperlipidemia. 6. History of atrial fibrillation, on Eliquis. 7. Chronic kidney disease, stage 4. 8. Morbid obesity. 9. Generalized weakness. PLAN: 1. We will remove the patient from isolation. 2. Continue 1800-calorie ADA diet. Encouraged the patient to follow that closely. 3. Decubitus precautions. 4. Stress ulcer prophylaxis. 5. DVT prophylaxis. 6. Continue physical therapy and occupational therapy. Job ID: [id number]
[2018-11-23] MEDS: Lisinopril 10 MG TAB PO SCH (20:46)
[2018-11-23] MEDS: Pravastatin Sodium 20 MG TAB PO SCH (20:46)
[2018-11-24] MEDS: Atenolol 25 MG TAB PO SCH (08:24)
[2018-11-24] MEDS: Apixaban 5 MG TAB PO SCH ×2 (08:24→21:28)
[2018-11-24] MEDS: Aspirin 81 mg Enteric Coated Tablet PO SCH (08:24)
[2018-11-24] MEDS: glipiZIDE 5 MG TAB PO SCH ×2 (08:24→16:45)
[2018-11-24] MEDS: Colchicine 0.6 MG TAB PO SCH (08:25)
[2018-11-24] MEDS: Furosemide 80 MG TAB PO SCH ×2 (08:25→14:03)
[2018-11-24] MEDS: Famotidine 20 MG TAB PO SCH (08:25)
[2018-11-24] MEDS: Cyanocobalamin (Vitamin B-12) 1,000 MCG TAB PO SCH (08:25)
[2018-11-24] MEDS: Multivitamin W/ Minerals 1 TAB PO SCH (08:26)
[2018-11-24] MEDS: Febuxostat [Uloric] 80 MG PO SCH (08:26)
[2018-11-24] MEDS: Loperamide HCl 2 MG CAP PO SCH (08:26)
[2018-11-24] MEDS: POTASSIUM CITRATE 5 MEQ PO SCH ×3 (08:27→21:28)
[2018-11-24] MEDS: Tamsulosin HCl 0.4 MG CAP PO SCH (08:27)
--- NOTE | 2018-11-24 08:33 | PRG ---
DATE OF SERVICE: 11/24/2018 SUBJECTIVE: Mr. Joe states he is doing well, but he does not like taking his insulin. He states when he takes his insulin, it messes with his eyesight and he does want to take it anymore. I told him that he should continue taking it, I went through all of that lecture, but he still is resistant about taking it. I told him he would have to discuss that with Dr. White tomorrow. His C diff was negative, negative, and he is not on isolation anymore. Otherwise, he has no complaints. OBJECTIVE: VITAL SIGNS: Today reveal blood pressure 96/55, pulse 60, respirations 20, O2 saturation 97% to 98%, and T-max 98.7. GENERAL: This is a well-developed, well-nourished, obese white male, in no apparent distress at this time. HEENT: Reveals normocephalic, nontraumatic cranium. Pupils equally round, reactive. Extraocular movements are intact. Nose and throat are moist this morning. NECK: Supple without masses, nodes, or bruits. CHEST: Clear to auscultation. No rales, rhonchi, wheezes, or cough are heard. HEART: Reveals a regular rate and rhythm without murmurs, gallops, rubs. ABDOMEN: Obese, soft, nontender without organomegaly. Normal bowel sounds are noted in all four quadrants. No rebound or guarding is noted. : Deferred. EXTREMITIES: Reveal right BKA. The patient states it aches a little bit, but I did unwrap it and there was no redness or significant drainage. IMPRESSION: 1. Status post right hmaxj-pjx-cxkr amputation. 2. Severe peripheral vascular disease with gangrene. 3. Diabetes type 2. The patient is resistant about taking his insulin. 4. Hypertension. 5. Hyperlipidemia. 6. History of atrial fibrillation, on Eliquis. 7. Chronic kidney disease, stage 4. 8. Morbid obesity. 9. Generalized weakness. PLAN: 1. The patient is encouraged to take his insulin as ordered, sliding scale, until he is seen by Dr. White. 2. Continue 1800 calorie ADA diet. 3. Decubitus precautions. 4. Stress ulcer prophylaxis. 5. DVT prophylaxis. 6. Continue PT and OT. Job ID: [id number]
[2018-11-24] MEDS: Pravastatin Sodium 20 MG TAB PO SCH (21:28)
[2018-11-24] MEDS: Lisinopril 10 MG TAB PO SCH (21:28)
[2018-11-25] MEDS: Febuxostat [Uloric] 80 MG PO SCH (09:04)
[2018-11-25] MEDS: POTASSIUM CITRATE 5 MEQ PO SCH ×3 (09:04→20:30)
[2018-11-25] MEDS: Colchicine 0.6 MG TAB PO SCH (09:05)
[2018-11-25] MEDS: glipiZIDE 5 MG TAB PO SCH ×2 (09:05→16:58)
[2018-11-25] MEDS: Cyanocobalamin (Vitamin B-12) 1,000 MCG TAB PO SCH (09:05)
[2018-11-25] MEDS: Loperamide HCl 2 MG CAP PO SCH (09:06)
[2018-11-25] MEDS: Multivitamin W/ Minerals 1 TAB PO SCH (09:06)
[2018-11-25] MEDS: Furosemide 80 MG TAB PO SCH ×2 (09:06→14:59)
[2018-11-25] MEDS: Famotidine 20 MG TAB PO SCH ×2 (09:06→16:58)
[2018-11-25] MEDS: Apixaban 5 MG TAB PO SCH ×2 (09:06→20:29)
[2018-11-25] MEDS: Atenolol 25 MG TAB PO SCH (09:06)
[2018-11-25] MEDS: Tamsulosin HCl 0.4 MG CAP PO SCH (09:06)
[2018-11-25] MEDS: Aspirin 81 mg Enteric Coated Tablet PO SCH (09:06)
[2018-11-25] MEDS: HumaLOG 300 UNITS/3 ML VIAL SC PRN (11:51)
--- NOTE | 2018-11-25 14:25 | PRG ---
DATE OF SERVICE: 11/25/2018 SUBJECTIVE: Mr. Joe is doing well. Denies any complaints. His repeat C diff was negative. He is off isolation. He also has not taken any sliding scale coverage over the weekend. I think his blood sugars are staying below 200. He seems to be in a better mood. He is participating with Therapy. Discussed with nursing and no concerns. OBJECTIVE: VITAL SIGNS: He is afebrile. Heart rate 65, respirations 20, oxygen saturation 96% on room air, and blood pressure 114/57. CARDIOVASCULAR: S1 and S2 plus. RESPIRATORY: Normal vesicular breath sounds. ABDOMEN: Soft, obese, and nontender. Bowel sounds heard in all quadrants. EXTREMITIES: Without cyanosis or clubbing. Right BKA stump with dressing. LABORATORY DATA: As stated, blood sugars are 130, 213, 127, 185, 138, 194, 148, 185, 132, 159, 158, and 166. IMPRESSION: 1. Diabetes mellitus type 2. 2. Hypertension. 3. Dyslipidemia. 4. Atrial fibrillation. 5. Chronic kidney disease. 6. Morbid obesity. 7. Peripheral vascular disease, status post right below-knee amputation. PLAN: 1. Continue current medications. 2. 1800 calorie heart healthy ADA diet. 3. Accu-Cheks. 4. Physical therapy. 5. Stump care. 6. DVT prophylaxis. He is on Eliquis. 7. Routine laboratory values. 8. Discussed with the patient and nursing in detail. All questions answered. Job ID: [id number]
[2018-11-25] MEDS: Pravastatin Sodium 20 MG TAB PO SCH (20:30)
[2018-11-25] MEDS: Lisinopril 10 MG TAB PO SCH (20:30)
[2018-11-25] MEDS: HYDROcodone/Acetaminophen 10/325 mg Tablet PO PRN (20:30)
[2018-11-26] MEDS: HYDROcodone/Acetaminophen 10/325 mg Tablet PO PRN ×2 (05:18→09:06)
[2018-11-26] MEDS: Multivitamin W/ Minerals 1 TAB PO SCH (08:58)
[2018-11-26] MEDS: Tamsulosin HCl 0.4 MG CAP PO SCH (08:58)
[2018-11-26] MEDS: Aspirin 81 mg Enteric Coated Tablet PO SCH (08:58)
[2018-11-26] MEDS: Apixaban 5 MG TAB PO SCH ×2 (08:58→20:38)
[2018-11-26] MEDS: Cyanocobalamin (Vitamin B-12) 1,000 MCG TAB PO SCH (08:58)
[2018-11-26] MEDS: Atenolol 25 MG TAB PO SCH (08:59)
[2018-11-26] MEDS: glipiZIDE 5 MG TAB PO SCH ×2 (08:59→16:44)
[2018-11-26] MEDS: Furosemide 80 MG TAB PO SCH ×2 (08:59→14:44)
[2018-11-26] MEDS: Colchicine 0.6 MG TAB PO SCH (08:59)
[2018-11-26] MEDS: Loperamide HCl 2 MG CAP PO SCH (09:00)
[2018-11-26] MEDS: Febuxostat [Uloric] 80 MG PO SCH (09:01)
[2018-11-26] MEDS: POTASSIUM CITRATE 5 MEQ PO SCH ×3 (09:01→20:39)
--- NOTE | 2018-11-26 13:58 | PRG ---
DATE OF SERVICE: 11/26/2018 SUBJECTIVE: Mr. Joe is doing well. He is mobile on his wheelchair. He was seen on his way up to the case conference meeting. Apparently, has denied skilled nursing stay. He is trying to figure out what his options are. From the medical standpoint, he stated that the famotidine changed to once daily in the evening is helping. He is still staying off his sliding scale coverage with insulin. He denies any other concerns or questions. Discussed with nursing. OBJECTIVE: VITAL SIGNS: He is afebrile. Heart rate 59, respirations 20, oxygen saturation 97% on room air, blood pressure is 99/56. CARDIOVASCULAR: S1 and S2 plus. RESPIRATORY: Normal vesicular breath sounds. ABDOMEN: Soft, obese, nontender. Bowel sounds heard in all quadrants. EXTREMITIES: Without cyanosis or clubbing. Right leg with BKA stump with dressing. IMPRESSION: 1. Right BKA for gangrene. 2. Diabetes mellitus type 2. 3. Hypertension. 4. Dyslipidemia. 5. Paroxysmal atrial fibrillation. 6. Chronic kidney disease stage 3 to 4. 7. Morbid obesity. PLAN: 1. Continue current medications. 2. Nutritional support. 3. 1800 calorie heart healthy ADA diet. 4. Stump care. 5. DVT and stress ulcer prophylaxis. He is on Eliquis and famotidine. 6. Continue physical therapy. 7. Discharge planning. 8. Discussed with the patient in detail. All questions . Job ID: [id number]
[2018-11-26] MEDS: Famotidine 20 MG TAB PO SCH (16:44)
[2018-11-26] MEDS: Pravastatin Sodium 20 MG TAB PO SCH (20:39)
[2018-11-26] MEDS: Lisinopril 10 MG TAB PO SCH (20:39)
[2018-11-27] MEDS: glipiZIDE 5 MG TAB PO SCH ×2 (08:04→17:09)
[2018-11-27] MEDS: Apixaban 5 MG TAB PO SCH ×2 (08:04→20:27)
[2018-11-27] MEDS: Aspirin 81 mg Enteric Coated Tablet PO SCH (08:04)
[2018-11-27] MEDS: Atenolol 25 MG TAB PO SCH (08:05)
[2018-11-27] MEDS: Cyanocobalamin (Vitamin B-12) 1,000 MCG TAB PO SCH (08:06)
[2018-11-27] MEDS: Loperamide HCl 2 MG CAP PO SCH (08:06)
[2018-11-27] MEDS: Multivitamin W/ Minerals 1 TAB PO SCH (08:06)
[2018-11-27] MEDS: Furosemide 80 MG TAB PO SCH ×2 (08:06→13:08)
[2018-11-27] MEDS: Colchicine 0.6 MG TAB PO SCH (08:06)
[2018-11-27] MEDS: POTASSIUM CITRATE 10 MEQ PO SCH ×2 (08:07→13:09)
[2018-11-27] MEDS: Tamsulosin HCl 0.4 MG CAP PO SCH (08:07)
[2018-11-27] MEDS: Febuxostat [Uloric] 80 MG PO SCH (08:08)
[2018-11-27] MEDS: HumaLOG 300 UNITS/3 ML VIAL SC PRN (11:36)
--- NOTE | 2018-11-27 14:14 | PRG ---
DATE OF SERVICE: 11/27/2018 SUBJECTIVE: Mr. Joe is doing well. Denies any complaints. He did require some sliding scale coverage since his blood sugar was 240. He is participating with Therapy. Discharge planning is underway as there may be some time restrictions from his insurance. No family at bedside. Discussed with nursing. No concerns. OBJECTIVE: VITAL SIGNS: He is afebrile. Heart rate 59, respirations 20, oxygen saturation 96% on room air, blood pressure 108/57. CARDIOVASCULAR: S1 and S2 plus. RESPIRATORY: Normal vesicular breath sounds. ABDOMEN: Soft, nontender. Bowel sounds heard in all quadrants. EXTREMITIES: Without cyanosis, clubbing. Right BKA stump with dressing. CENTRAL NERVOUS SYSTEM: AAO x3. Cranial nerves 2 through 12 intact. Motor system, grossly nonfocal except for generalized weakness. Blood sugars are 155, 132, 145, and 247. IMPRESSION: 1. Diabetes mellitus type 2. 2. Hypertension. 3. Dyslipidemia. 4. Paroxysmal atrial fibrillation. 5. Chronic kidney disease. 6. Peripheral vascular disease. 7. Morbid obesity. 8. Deconditioning. PLAN: 1. Continue current medications. 2. 1800 calorie heart healthy ADA diet. 3. DVT and stress ulcer prophylaxis. 4. Decubitus precautions. 5. Routine laboratory values. 6. Physical therapy. 7. Discharge planning. 8. Accu-Cheks with sliding scale coverage. Job ID: [id number]
[2018-11-27] MEDS: Famotidine 20 MG TAB PO SCH (17:09)
[2018-11-27] MEDS: Lisinopril 10 MG TAB PO SCH (20:27)
[2018-11-27] MEDS: Pravastatin Sodium 20 MG TAB PO SCH (20:27)
[2018-11-28] MEDS: glipiZIDE 5 MG TAB PO SCH ×2 (08:17→16:56)
[2018-11-28] MEDS: Apixaban 5 MG TAB PO SCH ×2 (08:17→20:14)
[2018-11-28] MEDS: Atenolol 25 MG TAB PO SCH (08:18)
[2018-11-28] MEDS: Aspirin 81 mg Enteric Coated Tablet PO SCH (08:18)
[2018-11-28] MEDS: Colchicine 0.6 MG TAB PO SCH (08:19)
[2018-11-28] MEDS: Cyanocobalamin (Vitamin B-12) 1,000 MCG TAB PO SCH (08:19)
[2018-11-28] MEDS: Furosemide 80 MG TAB PO SCH ×2 (08:19→14:36)
[2018-11-28] MEDS: Multivitamin W/ Minerals 1 TAB PO SCH (08:19)
[2018-11-28] MEDS: POTASSIUM CITRATE 10 MEQ PO SCH (08:19)
[2018-11-28] MEDS: Loperamide HCl 2 MG CAP PO SCH (08:19)
[2018-11-28] MEDS: Febuxostat [Uloric] 80 MG PO SCH (08:20)
[2018-11-28] MEDS: Tamsulosin HCl 0.4 MG CAP PO SCH (08:20)
--- NOTE | 2018-11-28 14:08 | PRG ---
DATE OF SERVICE: 11/28/2018 SUBJECTIVE: Mr. Joe is doing the same. Denies any complaints. States that he is trying hard with therapy. Discussed with case management and apparently insurance has approved for him to stay till Sunday. The patient was requesting home health. I said I will be glad to order the initial home health order, but all further orders needs to come from his PCP as I would not be following him. The patient states that he does not have a PCP and I advised him he better find somebody soon so that home health can continue uninterrupted. He also states that he would like a flu shot and I have discussed that with the nursing. They are going to check and if he has not had one, they are going to give him one. He also states that he has skin breakdown in his back for which he was having some barrier cream applied, which has not been done since he has been using the bedside commode and I informed nursing and they are going to check on it. He is doing well, otherwise, he has not needed any further insulin via sliding scale coverage since yesterday. PHYSICAL EXAMINATION: VITAL SIGNS: He is afebrile. Heart rate 58, respirations 20, oxygen saturation 97% on room air, blood pressure 102/57. CARDIOVASCULAR: S1 and S2 plus. RESPIRATORY: Normal vesicular breath sounds. ABDOMEN: Soft, obese, nontender. Bowel sounds heard in all quadrants. EXTREMITIES: Without cyanosis, clubbing. Right stump with a dressing. IMPRESSION: 1. Diabetes mellitus type 2. 2. Hypertension. 3. Dyslipidemia. 4. Paroxysmal atrial fibrillation. 5. Morbid obesity. 6. Chronic kidney disease, stage IV. PLAN: 1. Continue current medications. 2. 1800 calorie heart healthy ADA renal diet. 3. DVT prophylaxis. He is on Eliquis. 4. Stress ulcer prophylaxis. 5. Stump care. 6. Physical therapy. 7. Discharge planning. 8. Encouraged the patient to find a PCP so that home health can continue uninterruptedly. 9. Discussed with the patient and nursing in detail. Job ID: [id number]
[2018-11-28] MEDS: Famotidine 20 MG TAB PO SCH (16:56)
[2018-11-28] MEDS: Pravastatin Sodium 20 MG TAB PO SCH (20:14)
[2018-11-28] MEDS: Lisinopril 10 MG TAB PO SCH (20:14)
[2018-11-28] MEDS: Loperamide HCl 2 MG CAP PO PRN (20:15)
[2018-11-29] MEDS: glipiZIDE 5 MG TAB PO SCH ×2 (07:27→16:45)
[2018-11-29] MEDS: Multivitamin W/ Minerals 1 TAB PO SCH (08:31)
[2018-11-29] MEDS: Tamsulosin HCl 0.4 MG CAP PO SCH (08:31)
[2018-11-29] MEDS: Colchicine 0.6 MG TAB PO SCH ×2 (08:31→08:39)
[2018-11-29] MEDS: Aspirin 81 mg Enteric Coated Tablet PO SCH (08:31)
[2018-11-29] MEDS: Atenolol 25 MG TAB PO SCH (08:31)
[2018-11-29] MEDS: Cyanocobalamin (Vitamin B-12) 1,000 MCG TAB PO SCH (08:31)
[2018-11-29] MEDS: Apixaban 5 MG TAB PO SCH ×2 (08:32→20:22)
[2018-11-29] MEDS: Furosemide 80 MG TAB PO SCH ×2 (08:32→14:11)
[2018-11-29] MEDS: Febuxostat [Uloric] 80 MG PO SCH (08:33)
[2018-11-29] MEDS: POTASSIUM CITRATE 10 MEQ PO SCH (08:33)
[2018-11-29] MEDS: Loperamide HCl 2 MG CAP PO SCH (08:34)
[2018-11-29] MEDS: Famotidine 20 MG TAB PO SCH (16:45)
[2018-11-29] MEDS: Lisinopril 10 MG TAB PO SCH (20:21)
[2018-11-29] MEDS: Pravastatin Sodium 20 MG TAB PO SCH (20:21)
[2018-11-30] MEDS: glipiZIDE 5 MG TAB PO SCH ×2 (07:35→17:24)
[2018-11-30] MEDS: Cyanocobalamin (Vitamin B-12) 1,000 MCG TAB PO SCH (09:48)
[2018-11-30] MEDS: Tamsulosin HCl 0.4 MG CAP PO SCH (09:48)
[2018-11-30] MEDS: Atenolol 25 MG TAB PO SCH (09:49)
[2018-11-30] MEDS: Aspirin 81 mg Enteric Coated Tablet PO SCH (09:49)
[2018-11-30] MEDS: Multivitamin W/ Minerals 1 TAB PO SCH (09:49)
[2018-11-30] MEDS: Colchicine 0.6 MG TAB PO SCH (09:49)
[2018-11-30] MEDS: Furosemide 80 MG TAB PO SCH ×2 (09:49→15:35)
[2018-11-30] MEDS: Apixaban 5 MG TAB PO SCH ×2 (09:49→20:38)
[2018-11-30] MEDS: Loperamide HCl 2 MG CAP PO SCH (09:50)
[2018-11-30] MEDS: POTASSIUM CITRATE 10 MEQ PO SCH (09:53)
[2018-11-30] MEDS: Febuxostat [Uloric] 80 MG PO SCH (09:55)
--- NOTE | 2018-11-30 16:09 | PRG ---
DATE OF SERVICE: 11/30/2018 SUBJECTIVE: Mr. Joe is doing the same. Denies any complaints. OBJECTIVE: VITAL SIGNS: He is afebrile. Heart rate 61, respirations 16, oxygen saturation 94% on room air, and blood pressure 112/56. He did meet with Case Management yesterday. CARDIOVASCULAR: S1 and S2 plus. RESPIRATORY: Normal vesicular breath sounds. ABDOMEN: Soft and nontender. Bowel sounds heard in all quadrants. EXTREMITIES: Without cyanosis, clubbing. Right BKA stump with dressing. IMPRESSION: 1. Diabetes mellitus type 2. 2. Hypertension. 3. Dyslipidemia. 4. Morbid obesity. 5. Paroxysmal atrial fibrillation. 6. Chronic kidney disease stage 3 to 4. PLAN: 1. Continue 1800-calorie heart healthy ADA diet. 2. DVT and stress ulcer prophylaxis. 3. Decubitus precautions. 4. Incision care. 5. Physical therapy. 6. Nutritional support. 7. Discharge planning. Job ID: [id number]
[2018-11-30] MEDS: Famotidine 20 MG TAB PO SCH (17:24)
[2018-11-30] MEDS: Lisinopril 10 MG TAB PO SCH (20:38)
[2018-11-30] MEDS: Pravastatin Sodium 20 MG TAB PO SCH (20:39)
[2018-12-01] MEDS: glipiZIDE 5 MG TAB PO SCH ×2 (07:44→16:33)
[2018-12-01] MEDS: Apixaban 5 MG TAB PO SCH ×2 (08:44→20:30)
[2018-12-01] MEDS: Febuxostat [Uloric] 80 MG PO SCH (08:44)
[2018-12-01] MEDS: Cyanocobalamin (Vitamin B-12) 1,000 MCG TAB PO SCH (08:44)
[2018-12-01] MEDS: Atenolol 25 MG TAB PO SCH (08:44)
[2018-12-01] MEDS: Tamsulosin HCl 0.4 MG CAP PO SCH (08:44)
[2018-12-01] MEDS: Multivitamin W/ Minerals 1 TAB PO SCH (08:45)
[2018-12-01] MEDS: HYDROcodone/Acetaminophen 10/325 mg Tablet PO PRN ×2 (08:45→20:29)
[2018-12-01] MEDS: Aspirin 81 mg Enteric Coated Tablet PO SCH (08:45)
[2018-12-01] MEDS: Colchicine 0.6 MG TAB PO SCH (08:45)
[2018-12-01] MEDS: Loperamide HCl 2 MG CAP PO SCH (08:46)
[2018-12-01] MEDS: POTASSIUM CITRATE 10 MEQ PO SCH (08:46)
[2018-12-01] MEDS: Furosemide 80 MG TAB PO SCH ×2 (08:46→14:33)
--- NOTE | 2018-12-01 15:28 | PRG ---
DATE OF SERVICE: 12/01/2018 SUBJECTIVE: Mr. Joe is up in his wheelchair. He denies any complaints other than feeling like his endurance may be decreasing. He is also noticing some back pain, but no radiation. He denies any fever or chills. Denies any chest pain or shortness of breath. OBJECTIVE: VITAL SIGNS: He is afebrile, heart rate 62, respirations 20, oxygen saturation 93% on room air, blood pressure is 96/54. CARDIOVASCULAR: S1, S2 plus. RESPIRATORY: Normal vesicular breath sounds. ABDOMEN: Soft, nontender. Bowel sounds heard in all quadrants. EXTREMITIES: Without cyanosis or clubbing. Right BKA stump with dressing. LABORATORY DATA: Blood sugars are 138, 192, 171, 154, 152, and 190. IMPRESSION: 1. Right below-knee amputation for a gangrene. 2. Diabetes mellitus type 2, well controlled. 3. Hypertension. 4. Dyslipidemia. 5. Paroxysmal atrial fibrillation. 6. Chronic kidney disease, stage 3 to 4. 7. Morbid obesity. 8. Musculoskeletal low back pain. MRI done in August shows degenerative joint disease and degenerative disk disease. PLAN: 1. Continue current medications. 2. 1800 calorie heart healthy ADA diet. 3. Accu-Chek's with sliding scale coverage. 4. Monitor blood pressure and adjust medications as needed. 5. DVT prophylaxis-he is on Eliquis. 6. Decubitus precaution. 7. Stress ulcer prophylaxis. 8. Stump care. 9. Physical therapy. 10. Discharge planning. Job ID: [id number]
[2018-12-01] MEDS: Famotidine 20 MG TAB PO SCH (17:33)
[2018-12-01] MEDS: Pravastatin Sodium 20 MG TAB PO SCH (20:30)
[2018-12-01] MEDS: Lisinopril 10 MG TAB PO SCH (20:30)
[2018-12-02 05:29] LABS: #Basophils 0.1 thou/uL (0.0-0.2); #Eosinphils 0.6 thou/uL (0.0-0.7); #Lymphocytes 2.3 thou/uL (1.20-3.40); #Neutrophils 7.8 thou/uL (1.40-6.50); %Eosinophils 4.9 % (0.0-10.0); %Lymphocytes 19.4 % (21.0-51.0); %Monocytes 8.7 % (0.0-10.0); %Neutrophils 66.1 % (42.0-75.0); Hemoglobin 12.4 g/dL (14.0-18.0); Mean Corpuscular HGB CONC 31.6 g/dL (32.0-36.0); Mean Corpuscular Volume 95.1 fL (78.0-98.0); Mean Platelet Volume 7.7 fL (7.4-10.4); Platelet Count 187 thou/uL (130-400); RBC Distribution Width 15.3 % (11.5-14.5); Red Blood Cell (RBC) Count 4.12 mill/uL (4.70-6.10); White Blood Cell (WBC) Count 11.8 thou/uL (4.8-10.8)
[2018-12-02 05:38] LABS: Anion Gap 14 mmol/L (10-20); BUN (Urea Nitrogen) 54 mg/dL (8.4-25.7); Calc. Creatinine Clearance 0 mL/min (70-130); Calcium 9.6 mg/dL (7.8-10.44); Carbon Dioxide 25 mmol/L (23-31); Chloride 103 mmol/L (98-107); Estimated GFR-MDRD 33; Glucose 113 mg/dL (80-115); Potassium 3.9 mmol/L (3.5-5.1); Sodium 138 mmol/L (136-145)
[2018-12-02] MEDS: Apixaban 5 MG TAB PO SCH ×2 (08:24→20:48)
[2018-12-02] MEDS: glipiZIDE 5 MG TAB PO SCH ×2 (08:24→17:20)
[2018-12-02] MEDS: Atenolol 25 MG TAB PO SCH (08:25)
[2018-12-02] MEDS: Aspirin 81 mg Enteric Coated Tablet PO SCH (08:25)
[2018-12-02] MEDS: Colchicine 0.6 MG TAB PO SCH (08:25)
[2018-12-02] MEDS: Furosemide 80 MG TAB PO SCH ×2 (08:26→13:38)
[2018-12-02] MEDS: Multivitamin W/ Minerals 1 TAB PO SCH (08:26)
[2018-12-02] MEDS: POTASSIUM CITRATE 10 MEQ PO SCH (08:26)
[2018-12-02] MEDS: Tamsulosin HCl 0.4 MG CAP PO SCH (08:26)
[2018-12-02] MEDS: Cyanocobalamin (Vitamin B-12) 1,000 MCG TAB PO SCH (08:26)
[2018-12-02] MEDS: Febuxostat [Uloric] 80 MG PO SCH (08:26)
[2018-12-02] MEDS: Loperamide HCl 2 MG CAP PO SCH (08:26)
[2018-12-02] MEDS: HumaLOG 300 UNITS/3 ML VIAL SC PRN (11:18)
--- NOTE | 2018-12-02 13:40 | PRG ---
DATE OF SERVICE: 12/02/2018 SUBJECTIVE: Mr. Joe is doing the same. He states that his endurance is really low. He got tired, just rolling himself up in a wheelchair. He denies any chest pain or shortness of breath. His laboratory values from this morning are unremarkable. OBJECTIVE: VITAL SIGNS: He is afebrile. Heart rate 60, respirations 20, oxygen saturation 96% on room air, blood pressure 107/66. CARDIOVASCULAR: S1 and S2 plus. RESPIRATORY: Normal vesicular breath sounds. ABDOMEN: Soft, obese, and nontender. Bowel sounds heard in all quadrants. EXTREMITIES: Without cyanosis or clubbing. Right leg BKA stump with dressing. LABORATORY DATA: Laboratory values from this morning show a mildly elevated white count of 11.8, H and H are 12.4 and 39.2, with normal differential. Chemistry shows a sodium of 137, potassium 4.2, BUN and creatinine are 44 and 2.04, which are baseline for him. Blood sugars are 128, 141, 182, 146, and 152. IMPRESSION: 1. Peripheral vascular disease, status post right below-knee amputation. 2. Diabetes mellitus type 2. 3. Hypertension. 4. Dyslipidemia. 5. Paroxysmal atrial fibrillation. 6. Chronic kidney disease, stage 4. 7. Morbid obesity. PLAN: 1. Continue current medications. 2. 1800 calorie heart healthy ADA diet. 3. Accu-Cheks with sliding scale coverage. 4. Monitor blood pressure and adjust medications as needed. 5. DVT prophylaxis - he is on Eliquis. 6. Stress ulcer prophylaxis. 7. Decubitus precautions. 8. Physical therapy. 9. Discharge planning. 10. He was supposed to go home with his brother, but apparently his brother is sick and his family decided they cannot handle him, so there is a case conference tomorrow where his brother is going to come along with Case Management and will decide on his best options. Job ID: [id number]
[2018-12-02] MEDS: Famotidine 20 MG TAB PO SCH (17:20)
[2018-12-02] MEDS: Pravastatin Sodium 20 MG TAB PO SCH (20:48)
[2018-12-02] MEDS: Lisinopril 10 MG TAB PO SCH (20:48)
[2018-12-03] MEDS: Aspirin 81 mg Enteric Coated Tablet PO SCH (08:20)
[2018-12-03] MEDS: glipiZIDE 5 MG TAB PO SCH ×2 (08:20→16:35)
[2018-12-03] MEDS: Apixaban 5 MG TAB PO SCH ×2 (08:20→20:42)
[2018-12-03] MEDS: Cyanocobalamin (Vitamin B-12) 1,000 MCG TAB PO SCH (08:21)
[2018-12-03] MEDS: Atenolol 25 MG TAB PO SCH (08:21)
[2018-12-03] MEDS: Furosemide 80 MG TAB PO SCH ×2 (08:21→13:59)
[2018-12-03] MEDS: Colchicine 0.6 MG TAB PO SCH (08:21)
[2018-12-03] MEDS: Tamsulosin HCl 0.4 MG CAP PO SCH (08:22)
[2018-12-03] MEDS: POTASSIUM CITRATE 10 MEQ PO SCH (08:22)
[2018-12-03] MEDS: Multivitamin W/ Minerals 1 TAB PO SCH (08:22)
[2018-12-03] MEDS: Febuxostat [Uloric] 80 MG PO SCH (08:22)
[2018-12-03] MEDS: Loperamide HCl 2 MG CAP PO SCH (08:22)
--- NOTE | 2018-12-03 13:35 | PRG ---
DATE OF SERVICE: 12/03/2018 SUBJECTIVE: Mr. Joe is doing the same. Denies any complaints. Apparently, his pain medicines fell off his list and he wants to be put back on them. He is scheduled to have his weekly case conference to decide on his discharge planning. Denies any chest pain or shortness of breath. Denies any light headedness or dizziness. No family at bedside. OBJECTIVE: VITAL SIGNS: He is afebrile. Heart rate 58, respirations 18, oxygen saturation 99% on room air, blood pressure 122/62. CARDIOVASCULAR: S1 and S2 plus. RESPIRATORY: Normal vesicular breath sounds. ABDOMEN: Soft, obese, nontender. Bowel sounds heard in all quadrants. EXTREMITIES: Without cyanosis or clubbing. Right BKA stump with dressing. CENTRAL NERVOUS SYSTEM: Cranial nerves 2 through 12 intact. Alert, awake, and oriented x3. Motor system examination shows generalized weakness. LABORATORY VALUES: Blood sugars are 142, 157, 134, and 206. IMPRESSION: 1. Diabetes mellitus, type 2. 2. Hypertension. 3. Dyslipidemia. 4. Paroxysmal atrial fibrillation. 5. Chronic kidney disease, stage 4. 6. PVD, status post right BKA. 7. Morbid obesity. PLAN: 1. Continue current medications. 2. 1800-calorie heart healthy ADA diet. 3. Continue pain medications, I think it is tramadol. 4. Stump care. 5. Physical therapy. 6. Discharge planning. 7. Routine laboratory values. 8. Discussed with the patient and nursing in detail. All questions answered. Job ID: [id number]
[2018-12-03] MEDS: Famotidine 20 MG TAB PO SCH (16:35)
[2018-12-03] MEDS: Lisinopril 10 MG TAB PO SCH (20:40)
[2018-12-03] MEDS: Pravastatin Sodium 20 MG TAB PO SCH (20:40)
[2018-12-04] MEDS: glipiZIDE 5 MG TAB PO SCH ×2 (07:20→16:30)
[2018-12-04] MEDS: Cyanocobalamin (Vitamin B-12) 1,000 MCG TAB PO SCH (09:19)
[2018-12-04] MEDS: Atenolol 25 MG TAB PO SCH (09:19)
[2018-12-04] MEDS: Potassium Chloride 10 MEQ TAB PO SCH (09:19)
[2018-12-04] MEDS: Aspirin 81 mg Enteric Coated Tablet PO SCH (09:19)
[2018-12-04] MEDS: Apixaban 5 MG TAB PO SCH ×2 (09:19→20:52)
[2018-12-04] MEDS: Multivitamin W/ Minerals 1 TAB PO SCH (09:20)
[2018-12-04] MEDS: Loperamide HCl 2 MG CAP PO SCH (09:20)
[2018-12-04] MEDS: Furosemide 80 MG TAB PO SCH ×2 (09:20→14:50)
[2018-12-04] MEDS: Colchicine 0.6 MG TAB PO SCH (09:20)
[2018-12-04] MEDS: Tamsulosin HCl 0.4 MG CAP PO SCH (09:20)
[2018-12-04] MEDS: Febuxostat [Uloric] 80 MG PO SCH (09:22)
[2018-12-04] MEDS: Famotidine 20 MG TAB PO SCH (17:51)
[2018-12-04] MEDS: Pravastatin Sodium 20 MG TAB PO SCH (20:52)
[2018-12-04] MEDS: HYDROcodone/Acetaminophen 5/325 mg Tablet PO PRN (20:52)
[2018-12-04] MEDS: Lisinopril 10 MG TAB PO SCH (20:52)
[2018-12-05] MEDS: HYDROcodone/Acetaminophen 5/325 mg Tablet PO PRN ×2 (03:55→20:04)
[2018-12-05] MEDS: glipiZIDE 5 MG TAB PO SCH ×2 (07:13→16:35)
[2018-12-05] MEDS: Aspirin 81 mg Enteric Coated Tablet PO SCH (09:10)
[2018-12-05] MEDS: Potassium Chloride 10 MEQ TAB PO SCH (09:11)
[2018-12-05] MEDS: Colchicine 0.6 MG TAB PO SCH (09:11)
[2018-12-05] MEDS: Furosemide 80 MG TAB PO SCH ×2 (09:11→14:21)
[2018-12-05] MEDS: Multivitamin W/ Minerals 1 TAB PO SCH (09:12)
[2018-12-05] MEDS: Loperamide HCl 2 MG CAP PO SCH (09:12)
[2018-12-05] MEDS: Tamsulosin HCl 0.4 MG CAP PO SCH (09:13)
[2018-12-05] MEDS: Cyanocobalamin (Vitamin B-12) 1,000 MCG TAB PO SCH (09:14)
[2018-12-05] MEDS: Apixaban 5 MG TAB PO SCH ×2 (09:14→20:03)
[2018-12-05] MEDS: Atenolol 25 MG TAB PO SCH (09:14)
[2018-12-05] MEDS: Febuxostat [Uloric] 80 MG PO SCH (09:15)
--- NOTE | 2018-12-05 13:53 | PRG ---
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 He has been approved to stay here until Sunday by his insurance. He apparently needs to go to a nursing facility as he does not have a home to go to and he has [facility] either [facility] or [facility], and Case Management is sending referrals. He denies any concerns or questions. No family at bedside. OBJECTIVE: VITAL SIGNS: He is afebrile. Heart rate 67, respirations 18, oxygen saturation 97% on room air, blood pressure 99/55. CARDIOVASCULAR SYSTEM: S1, S2 plus. RESPIRATORY SYSTEMS: Normal vesicular breath sounds. ABDOMEN: Soft, nontender. Bowel sounds heard in all quadrants. Obese. EXTREMITIES: Without cyanosis or clubbing. Right BKA stump with dressing. IMPRESSION: 1. Diabetes mellitus type 2. Blood sugars are decent. They are 125, 230, 122, 207, 134, and 158. 2. Hypertension. 3. Paroxysmal atrial fibrillation. 4. Chronic kidney disease, stage IV. 5. Peripheral vascular disease, status post right below-knee amputation. 6. Morbid obesity. 7. Chronic back pain. PLAN: 1. Continue current medications. 2. 1800 calorie heart-healthy ADA diet. 3. Accu-Cheks with sliding scale coverage. 4. DVT and stress ulcer prophylaxis. 5. Decubitus precautions. 6. Routine laboratory values. 7. Continue Eliquis. 8. Stump care. 9. Physical therapy. 10. Discharge planning. Job ID: [id number]
[2018-12-05] MEDS ORDERED: Zolpidem Tartrate 5 MG TAB PO PRN (13:54)
[2018-12-05] MEDS ORDERED: Doxycycline 100 MG CAP PO SCH (14:00)
[2018-12-05] MEDS ORDERED: Ciprofloxacin 500 MG TAB PO SCH (14:00)
--- NOTE | 2018-12-05 14:08 | PRG ---
DATE OF SERVICE: 12/05/2018 ADDENDUM: The patient was apparently meeting with the folks from [employer], and I had missed the nurse, but when I had just completely dictating and when I saw the nurse, nurse stated that his stump incision is now showing some erythema and localized dehiscence. It was normal when the dressing was changed 3 days ago. The dressings are being changed per Orthopedic recommendation twice a week. I advised them to immediately contact Dr. Kennedy and see if they can get him in as soon as possible for him to be evaluated. In the meantime, I will start him on empiric doxycycline and ciprofloxacin. I informed the patient about this as well. Job ID: [id number]
[2018-12-05] MEDS: Famotidine 20 MG TAB PO SCH (17:33)
[2018-12-05] MEDS: Ciprofloxacin 500 MG TAB PO SCH (20:03)
[2018-12-05] MEDS: Pravastatin Sodium 20 MG TAB PO SCH (20:04)
[2018-12-05] MEDS: Doxycycline 100 MG CAP PO SCH (20:04)
[2018-12-05] MEDS: Lisinopril 10 MG TAB PO SCH (20:04)
[2018-12-06] MEDS: Ciprofloxacin 500 MG TAB PO SCH ×2 (05:27→20:44)
[2018-12-06] MEDS: glipiZIDE 5 MG TAB PO SCH ×2 (09:01→16:50)
[2018-12-06] MEDS: Cyanocobalamin (Vitamin B-12) 1,000 MCG TAB PO SCH (09:03)
[2018-12-06] MEDS: Multivitamin W/ Minerals 1 TAB PO SCH (09:03)
[2018-12-06] MEDS: Potassium Chloride 10 MEQ TAB PO SCH (09:03)
[2018-12-06] MEDS: Atenolol 25 MG TAB PO SCH (09:05)
[2018-12-06] MEDS: Apixaban 5 MG TAB PO SCH ×2 (09:06→20:43)
[2018-12-06] MEDS: Colchicine 0.6 MG TAB PO SCH (09:06)
[2018-12-06] MEDS: Loperamide HCl 2 MG CAP PO SCH (09:08)
[2018-12-06] MEDS: Doxycycline 100 MG CAP PO SCH ×2 (09:08→20:44)
[2018-12-06] MEDS: Tamsulosin HCl 0.4 MG CAP PO SCH (09:09)
[2018-12-06] MEDS: Febuxostat [Uloric] 80 MG PO SCH (09:10)
[2018-12-06] MEDS: Furosemide 80 MG TAB PO SCH ×2 (09:10→14:27)
[2018-12-06] MEDS: Aspirin 81 mg Enteric Coated Tablet PO SCH (09:20)
[2018-12-06 11:43] LABS: #Basophils 0.1 thou/uL (0.0-0.2); #Eosinphils 0.1 thou/uL (0.0-0.7); #Lymphocytes 0.9 thou/uL (1.20-3.40); #Monocytes 0.7 thou/uL (0.11-0.59); %Basophils 0.3 % (0.0-1.0); %Eosinophils 0.6 % (0.0-10.0); %Lymphocytes 5.3 % (21.0-51.0); %Monocytes 4.1 % (0.0-10.0); %Neutrophils 89.8 % (42.0-75.0); Mean Corpuscular HGB CONC 32.9 g/dL (32.0-36.0); Mean Corpuscular Hemoglobin 30.1 pg (27.0-31.0); Mean Corpuscular Volume 91.5 fL (78.0-98.0); Mean Platelet Volume 7.3 fL (7.4-10.4); Platelet Count 192 thou/uL (130-400); RBC Distribution Width 14.8 % (11.5-14.5); Red Blood Cell (RBC) Count 3.98 mill/uL (4.70-6.10); White Blood Cell (WBC) Count 17.8 thou/uL (4.8-10.8)
[2018-12-06 12:01] LABS: ALT (SGPT) 13 U/L (8-55); AST (SGOT) 11 U/L (5-34); Albumin 3.7 g/dL (3.4-4.8); Alkaline Phosphatase 66 U/L (40-150); Anion Gap 15 mmol/L (10-20); BUN (Urea Nitrogen) 68 mg/dL (8.4-25.7); Bilirubin, Total 0.7 mg/dL (0.2-1.2); Calc. Creatinine Clearance 0 mL/min (70-130); Calcium 9.7 mg/dL (7.8-10.44); Carbon Dioxide 24 mmol/L (23-31); Chloride 99 mmol/L (98-107); Estimated GFR-MDRD 25; Globulin 2.8 g/dL (2.4-3.5); Glucose 182 mg/dL (80-115); Potassium 4.4 mmol/L (3.5-5.1); Protein, Total 6.5 g/dL (5.8-8.1); Sodium 134 mmol/L (136-145)
[2018-12-06] MEDS: Famotidine 20 MG TAB PO SCH (16:50)
[2018-12-06] MEDS: Pravastatin Sodium 20 MG TAB PO SCH (20:43)
[2018-12-06] MEDS: Docusate 100 MG CAP PO SCH (20:44)
[2018-12-06] MEDS: Lisinopril 10 MG TAB PO SCH (20:45)
[2018-12-06] MEDS: POTASSIUM CITRATE 5 MEQ PO SCH (20:47)
[2018-12-07] MEDS: Ciprofloxacin 500 MG TAB PO SCH ×2 (05:12→20:41)
[2018-12-07] MEDS: glipiZIDE 5 MG TAB PO SCH ×3 (08:29→16:32)
[2018-12-07] MEDS: Apixaban 5 MG TAB PO SCH ×2 (08:30→20:41)
[2018-12-07] MEDS: Aspirin 81 mg Enteric Coated Tablet PO SCH (08:30)
[2018-12-07] MEDS: Atenolol 25 MG TAB PO SCH (08:32)
[2018-12-07] MEDS: Doxycycline 100 MG CAP PO SCH ×2 (08:33→20:41)
[2018-12-07] MEDS: Docusate 100 MG CAP PO SCH ×2 (08:33→20:45)
[2018-12-07] MEDS: Colchicine 0.6 MG TAB PO SCH (08:33)
[2018-12-07] MEDS: Furosemide 80 MG TAB PO SCH ×2 (08:33→15:40)
[2018-12-07] MEDS: Cyanocobalamin (Vitamin B-12) 1,000 MCG TAB PO SCH (08:33)
[2018-12-07] MEDS: Multivitamin W/ Minerals 1 TAB PO SCH (08:34)
[2018-12-07] MEDS: Febuxostat [Uloric] 80 MG PO SCH (08:34)
[2018-12-07] MEDS: Loperamide HCl 2 MG CAP PO SCH (08:34)
[2018-12-07] MEDS: POTASSIUM CITRATE 5 MEQ PO SCH ×3 (08:37→20:43)
[2018-12-07] MEDS: Tamsulosin HCl 0.4 MG CAP PO SCH (08:42)
[2018-12-07] MEDS: Famotidine 20 MG TAB PO SCH (16:27)
[2018-12-07] MEDS: Pravastatin Sodium 20 MG TAB PO SCH (20:41)
[2018-12-07] MEDS: Lisinopril 10 MG TAB PO SCH (20:42)
--- NOTE | 2018-12-07 21:31 | PRG ---
DATE OF SERVICE: SUBJECTIVE: The patient is sitting up in the chair. He states that he is having a low-grade fever as he normally is 97 for normal temperature. He is having stable pain in his knee with no real pain, no change. No nausea, vomiting, or abdominal pain. He is having good bowel movements. OBJECTIVE: VITAL SIGNS: Temperature 97, pulse 69, respirations 20, O2 sats 97% on room air, and blood pressure 128/57. LUNGS: Clear. CARDIAC: Regular rhythm. ABDOMEN: Soft and nontender. Accu-Cheks are normal of 71 to 151. ASSESSMENT: 1. Persistent infection of right below-knee amputation, now on Cipro and doxycycline. 2. Chronic kidney disease, stage 3, with recent deterioration on furosemide 80 twice daily, and we will repeat CBC and basic metabolic panel in the a.m. 3. Morbid obesity, stable. 4. Type 2 diabetes, controlled to goal. PLAN: Repeat CBC and basic metabolic panel in the a.m. Continue Cipro and doxycycline. Follow up with Dr. Kennedy next week. Continue PT and wound care. Continue DVT and stress ulcer prophylaxis. Continue Accu-Cheks with sliding scale coverage. Job ID: [id number]
[2018-12-08] MEDS: Ciprofloxacin 500 MG TAB PO SCH (05:28)
[2018-12-08 05:30] LABS: #Basophils 0.1 thou/uL (0.0-0.2); #Eosinphils 0.2 thou/uL (0.0-0.7); #Lymphocytes 1.3 thou/uL (1.20-3.40); #Neutrophils 12.9 thou/uL (1.40-6.50); %Basophils 0.5 % (0.0-1.0); %Eosinophils 1.3 % (0.0-10.0); %Lymphocytes 8.5 % (21.0-51.0); %Monocytes 6.2 % (0.0-10.0); %Neutrophils 83.6 % (42.0-75.0); Hemoglobin 11.4 g/dL (14.0-18.0); Mean Corpuscular HGB CONC 32.2 g/dL (32.0-36.0); Mean Corpuscular Volume 93.3 fL (78.0-98.0); Mean Platelet Volume 7.4 fL (7.4-10.4); Platelet Count 199 thou/uL (130-400); RBC Distribution Width 14.9 % (11.5-14.5); Red Blood Cell (RBC) Count 3.81 mill/uL (4.70-6.10); White Blood Cell (WBC) Count 15.4 thou/uL (4.8-10.8)
[2018-12-08] MEDS: glipiZIDE 5 MG TAB PO SCH ×2 (09:12→17:22)
[2018-12-08] MEDS: Atenolol 25 MG TAB PO SCH (09:13)
[2018-12-08] MEDS: Aspirin 81 mg Enteric Coated Tablet PO SCH (09:13)
[2018-12-08] MEDS: Apixaban 5 MG TAB PO SCH ×2 (09:13→21:02)
[2018-12-08] MEDS: Cyanocobalamin (Vitamin B-12) 1,000 MCG TAB PO SCH (09:14)
[2018-12-08] MEDS: Colchicine 0.6 MG TAB PO SCH (09:14)
[2018-12-08] MEDS: Docusate 100 MG CAP PO SCH ×2 (09:14→21:02)
[2018-12-08] MEDS: Loperamide HCl 2 MG CAP PO SCH (09:15)
[2018-12-08] MEDS: Furosemide 80 MG TAB PO SCH ×2 (09:15→14:37)
[2018-12-08] MEDS: Multivitamin W/ Minerals 1 TAB PO SCH (09:15)
[2018-12-08] MEDS: Febuxostat [Uloric] 80 MG PO SCH (09:16)
[2018-12-08] MEDS: Tamsulosin HCl 0.4 MG CAP PO SCH (09:17)
[2018-12-08] MEDS: POTASSIUM CITRATE 5 MEQ PO SCH ×3 (09:17→21:03)
[2018-12-08] MEDS: Sulfameth/Trimethoprim DS 800-160mg TAB PO SCH ×2 (09:17→21:02)
[2018-12-08] MEDS: HYDROcodone/Acetaminophen 5/325 mg Tablet PO PRN (09:18)
[2018-12-08] MEDS: HumaLOG 300 UNITS/3 ML VIAL SC PRN ×2 (12:16→17:22)
[2018-12-08] MEDS: Famotidine 20 MG TAB PO SCH (17:22)
[2018-12-08] MEDS: Pravastatin Sodium 20 MG TAB PO SCH (21:02)
[2018-12-08] MEDS: Lisinopril 10 MG TAB PO SCH (21:02)
[2018-12-09] MEDS: glipiZIDE 5 MG TAB PO SCH ×2 (07:28→16:30)
[2018-12-09] MEDS: Cyanocobalamin (Vitamin B-12) 1,000 MCG TAB PO SCH (08:27)
[2018-12-09] MEDS: Tamsulosin HCl 0.4 MG CAP PO SCH (08:27)
[2018-12-09] MEDS: Atenolol 25 MG TAB PO SCH ×2 (08:28→20:26)
[2018-12-09] MEDS: Furosemide 80 MG TAB PO SCH ×2 (08:28→14:55)
[2018-12-09] MEDS: Docusate 100 MG CAP PO SCH ×2 (08:28→20:26)
[2018-12-09] MEDS: Sulfameth/Trimethoprim DS 800-160mg TAB PO SCH ×2 (08:28→20:28)
[2018-12-09] MEDS: Colchicine 0.6 MG TAB PO SCH (08:28)
[2018-12-09] MEDS: Apixaban 5 MG TAB PO SCH ×2 (08:28→20:25)
[2018-12-09] MEDS: Aspirin 81 mg Enteric Coated Tablet PO SCH (08:28)
[2018-12-09] MEDS: Multivitamin W/ Minerals 1 TAB PO SCH (08:29)
[2018-12-09] MEDS: Loperamide HCl 2 MG CAP PO SCH (08:29)
[2018-12-09] MEDS: POTASSIUM CITRATE 5 MEQ PO SCH ×3 (08:30→20:27)
[2018-12-09] MEDS: Febuxostat [Uloric] 80 MG PO SCH (08:30)
--- NOTE | 2018-12-09 14:19 | PRG ---
DATE OF SERVICE: 12/09/2018 SUBJECTIVE: Mr. Joe is doing well. Denies any complains. Noticing some intestinal cramping and loose stools with the antibiotic, but the loose stools are just once daily. No fever or chills. Looked at his stump incision and it looks much improved. The erythema has pretty much resolved. There is no drainage. The dehiscence is pretty much in the ends or closing off. I am very happy with the progress. He is supposed to meet with some representatives from the [facility] facility, where he potentially might be discharged to. Discussed with nursing. OBJECTIVE: VITAL SIGNS: He is afebrile. Heart rate is 112, respirations 20, oxygen saturation 97%, and blood pressure 111/78. His tachycardia is new. We will review his medications. CARDIOVASCULAR: S1 and S2 plus, sinus tachycardia. RESPIRATORY: Normal vesicular breath sounds. ABDOMEN: Soft, obese, and nontender. Bowel sounds heard in all quadrants. EXTREMITIES: Without cyanosis, clubbing. Right stump incision has much improved. Surrounding erythema has pretty much resolved. Dehisced areas are closing up. LABORATORY VALUES: White count was 15.4 on the , down from 17.8; H and H are 11.4 and 35.5. Chemistry shows a blood sugar of 219, 294, 180, 100, and 213. IMPRESSION: 1. Infection of the incision for the right stump, much improved. 2. Diabetes mellitus, type 2. 3. Hypertension. 4. Dyslipidemia. 5. Paroxysmal atrial fibrillation. 6. Deconditioning. PLAN: 1. Continue antibiotics. 2. Add Florastor. 3. Monitor tachycardia and increase his Tenormin to 25 b.i.d. 4. Follow up with Dr. Kennedy on the . 5. Discharge planning. 6. Discussed with the patient in detail. All questions answered. Job ID: [id number]
[2018-12-09] MEDS: Famotidine 20 MG TAB PO SCH (17:56)
[2018-12-09] MEDS: Lisinopril 10 MG TAB PO SCH (20:26)
[2018-12-09] MEDS: Pravastatin Sodium 20 MG TAB PO SCH (20:27)
[2018-12-10 05:09] LABS: #Basophils 0.1 thou/uL (0.0-0.2); #Eosinphils 0.8 thou/uL (0.0-0.7); #Lymphocytes 1.4 thou/uL (1.20-3.40); #Monocytes 1.1 thou/uL (0.11-0.59); #Neutrophils 12.9 thou/uL (1.40-6.50); %Basophils 0.6 % (0.0-1.0); %Eosinophils 5.2 % (0.0-10.0); %Lymphocytes 8.5 % (21.0-51.0); %Monocytes 6.5 % (0.0-10.0); %Neutrophils 79.2 % (42.0-75.0); Hemoglobin 10.1 g/dL (14.0-18.0); Mean Corpuscular HGB CONC 32.4 g/dL (32.0-36.0); Mean Corpuscular Hemoglobin 29.7 pg (27.0-31.0); Mean Corpuscular Volume 91.9 fL (78.0-98.0); Mean Platelet Volume 7.8 fL (7.4-10.4); Platelet Count 245 thou/uL (130-400); RBC Distribution Width 14.7 % (11.5-14.5); Red Blood Cell (RBC) Count 3.38 mill/uL (4.70-6.10); White Blood Cell (WBC) Count 16.3 thou/uL (4.8-10.8)
[2018-12-10] MEDS: glipiZIDE 5 MG TAB PO SCH ×2 (07:35→16:26)
[2018-12-10] MEDS: Tamsulosin HCl 0.4 MG CAP PO SCH (08:35)
[2018-12-10] MEDS: Cyanocobalamin (Vitamin B-12) 1,000 MCG TAB PO SCH (08:35)
[2018-12-10] MEDS: Apixaban 5 MG TAB PO SCH ×2 (08:36→20:44)
[2018-12-10] MEDS: Multivitamin W/ Minerals 1 TAB PO SCH (08:36)
[2018-12-10] MEDS: Docusate 100 MG CAP PO SCH ×2 (08:36→20:45)
[2018-12-10] MEDS: Furosemide 80 MG TAB PO SCH ×2 (08:36→14:25)
[2018-12-10] MEDS: Colchicine 0.6 MG TAB PO SCH (08:36)
[2018-12-10] MEDS: Aspirin 81 mg Enteric Coated Tablet PO SCH (08:36)
[2018-12-10] MEDS: Loperamide HCl 2 MG CAP PO SCH (08:36)
[2018-12-10] MEDS: Atenolol 25 MG TAB PO SCH ×2 (08:37→20:44)
[2018-12-10] MEDS: Sulfameth/Trimethoprim DS 800-160mg TAB PO SCH ×2 (08:37→20:46)
[2018-12-10] MEDS: POTASSIUM CITRATE 5 MEQ PO SCH ×3 (08:38→20:48)
[2018-12-10] MEDS: Febuxostat [Uloric] 80 MG PO SCH (08:39)
[2018-12-10] MEDS ORDERED: Lisinopril 10 MG TAB PO SCH (13:26)
--- NOTE | 2018-12-10 14:06 | PRG ---
DATE OF SERVICE: 12/10/2018 SUBJECTIVE: Mr. Joe is doing the same. Denies any complaints. He is having waxing and waning strength. He apparently has been accepted by [facility] in [place], and his discharge date is tomorrow. He has been kept only on Bactrim for his wound infection as his wound cultures grew MRSA, and it is sensitive to Bactrim. It is resistant to doxycycline. OBJECTIVE: VITAL SIGNS: He is afebrile, heart rate is 72, respirations 16, oxygen saturation is 94%, and blood pressure 89/59. CARDIOVASCULAR SYSTEM: S1, S2 plus. RESPIRATORY: Normal vesicular breath sounds. ABDOMEN: Soft, nontender. Obese. Bowel sounds heard in all quadrants. EXTREMITIES: Without cyanosis or clubbing. Peripheral pulses are palpable. CENTRAL NERVOUS SYSTEM: Alert, awake, and oriented x3. Cranial nerves 2 through 12 intact. IMPRESSION: 1. Status post right [id number] amputation for gangrene. 2. Diabetes mellitus, type 2. 3. Hypertension. 4. Dyslipidemia. 5. Paroxysmal atrial fibrillation. 6. History of gout. 7. Morbid obesity. 8. Chronic kidney disease, stage 4. PLAN: 1. Continue current medications, but decrease his Lasix to 40 mg b.i.d. given his hypotensive episodes. 2. Decrease atenolol to 25 mg daily. 3. Nursing to hold his lisinopril if his systolic blood pressure is less than 120. 4. 1800-calorie, heart healthy, ADA diet. 5. Wound care. 6. DVT and stress ulcer prophylaxis. 7. Bactrim for a total of 10 days. 8. Discharge planning. 9. Outpatient followup with Dr. Kennedy on 12/13. 10. Continue physical therapy. 11. Discussed with the patient in detail and all questions answered. Job ID: [id number]
[2018-12-10] MEDS: Famotidine 20 MG TAB PO SCH (16:27)
[2018-12-10] MEDS: Pravastatin Sodium 20 MG TAB PO SCH (20:46)
[2018-12-11 07:38] VITALS: BP 96/54; TEMP 98.2
[2018-12-11] MEDS: Apixaban 5 MG TAB PO SCH (08:24)
[2018-12-11] MEDS: glipiZIDE 5 MG TAB PO SCH (08:24)
[2018-12-11] MEDS: Aspirin 81 mg Enteric Coated Tablet PO SCH (08:25)
[2018-12-11] MEDS: Atenolol 25 MG TAB PO SCH (08:25)
[2018-12-11] MEDS: Colchicine 0.6 MG TAB PO SCH (08:26)
[2018-12-11] MEDS: Loperamide HCl 2 MG CAP PO SCH (08:27)
[2018-12-11] MEDS: Cyanocobalamin (Vitamin B-12) 1,000 MCG TAB PO SCH (08:27)
[2018-12-11] MEDS: Furosemide 80 MG TAB PO SCH (08:27)
[2018-12-11] MEDS: Docusate 100 MG CAP PO SCH (08:27)
[2018-12-11] MEDS: Sulfameth/Trimethoprim DS 800-160mg TAB PO SCH (08:28)
[2018-12-11] MEDS: POTASSIUM CITRATE 5 MEQ PO SCH (08:28)
[2018-12-11] MEDS: Tamsulosin HCl 0.4 MG CAP PO SCH (08:28)
[2018-12-11] MEDS: Febuxostat [Uloric] 80 MG PO SCH (08:28)
[2018-12-11] MEDS: Multivitamin W/ Minerals 1 TAB PO SCH (08:28)
--- NOTE | 2018-12-11 16:32 | DIS ---
DATE OF ADMISSION: 11/01/2018 DATE OF DISCHARGE: 12/11/2018 PRINCIPAL DIAGNOSIS: Status post right below knee amputation for gangrene. SECONDARY DIAGNOSES: 1. Hypertension. 2. Diabetes mellitus, type 2. 3. Post-polio syndrome. 4. Chronic kidney disease, stage 4. 5. History of recurrent deep vein thrombosis. 6. Questionable history of paroxysmal atrial fibrillation. 7. Peripheral vascular disease. 8. History of pulmonary embolism in 2012. 9. Dyslipidemia. 10. Benign prostatic hypertrophy. COMPLICATIONS: None. ADVERSE REACTIONS: None. PROCEDURES: None. CONSULTATIONS: None. HOSPITAL COURSE: The patient was admitted on 11/[address] Carter after undergoing right BKA. He has improved very gradually during his hospital stay, but still not safe to go home. He obviously had signs of depression and he admits that he is depressed, but he does not want to take any medications. He is aware of the risks. He denies any suicidal or homicidal ideation. He did follow up with Dr. Kennedy and his sutures were removed. Wound care was followed per Dr. Kennedy's recommendation. He did develop some incisional erythema and some superficial dehiscence and I started him on empiric antibiotic therapy and cultures were done. He responded to the antibiotics. Cultures grew MRSA and he is sensitive to Bactrim and his antibiotic dosing was adjusted. He also had episodes of diarrhea, but he was checked for C diff and it was negative for toxin. He was deemed to have reached maximum medical improvement and he is being discharged to [facility] in [place]. PHYSICAL EXAMINATION: VITAL SIGNS: On the day of discharge, he is afebrile. Heart rate is 65, respirations 20, oxygen saturation 93% on room air, blood pressure 96/54. HEENT: Normocephalic, atraumatic. Pupils equal and reactive to light and accommodation. NECK: No JVD, thyromegaly, cervical carotid bruits. CARDIOVASCULAR: S1 and S2 plus. Rate and rhythm regular. RESPIRATORY: Normal vesicular breath sounds. ABDOMEN: Soft, obese, nontender. Bowel sounds heard in all quadrants. EXTREMITIES: Right BKA stump with dressing. CENTRAL NERVOUS SYSTEM: Alert, awake, and oriented x3. Cranial nerves 2 through 12 intact. LABORATORY VALUES: Blood sugars are 107, 247, 124, 182, 83, and 192. DISCHARGE MEDICATIONS: 1. Eliquis 5 mg b.i.d. 2. Ecotrin 81 mg daily. 3. Tenormin 25 mg b.i.d. 4. Vitamin B12 2000 mcg daily. 5. Colace 100 mg b.i.d. 6. Zantac 150 mg daily. 7. Lasix 80 mg b.i.d. 8. Glucotrol 10 mg b.i.d. 9. Lisinopril 5 mg at bedtime to hold if systolic blood pressure is less than 120. 10. Atenolol to be held if systolic blood pressure is less than 100. 11. Pravastatin 40 mg at bedtime. 12. Tamsulosin 0.4 mg daily. 13. Tramadol for pain. DISCHARGE INSTRUCTIONS: He will be followed by the medical records coordinator at the facility. He is to keep his appointment with Dr. Kennedy on 12/13. He is to continue his Bactrim DS p.o. b.i.d. for 7 more days. Written instructions for wound care to be sent with the patient to senior care, 1800 calorie heart healthy ADA diet. He will be followed by Physical therapy and Occupational therapy. He is to call us with any questions or concerns. Discussed with the patient in detail and total time spent on discharge 35 minutes. Job ID: [id number]
== END 2018-12-11 13:35 | DRG 560 ==
LOC: NAV ACUTE 17:38
PROVIDERS: ADMIT Internal Medicine; ATTEND Internal Medicine
DX: Z47.81 Encounter for orthopedic aftercare following surgical amputation (principal); N18.4 Chronic kidney disease, stage 4 (severe); I12.9 Hypertensive chronic kidney disease with stage 1 through stage 4 chronic kidney disease, or unspecified chronic kidney disease; G14 Postpolio syndrome; E11.22 Type 2 diabetes mellitus with diabetic chronic kidney disease; E11.51 Type 2 diabetes mellitus with diabetic peripheral angiopathy without gangrene; M1A.9XX0 Chronic gout, unspecified, without tophus (tophi); I48.0 Paroxysmal atrial fibrillation; I25.10 Atherosclerotic heart disease of native coronary artery without angina pectoris; N40.0 Benign prostatic hyperplasia without lower urinary tract symptoms; E66.01 Morbid (severe) obesity due to excess calories; E78.5 Hyperlipidemia, unspecified; I87.2 Venous insufficiency (chronic) (peripheral); F32.9 Major depressive disorder, single episode, unspecified; R19.7 Diarrhea, unspecified; L60.0 Ingrowing nail; M50.30 Other cervical disc degeneration, unspecified cervical region; M51.34 Other intervertebral disc degeneration, thoracic region; M51.36 Other intervertebral disc degeneration, lumbar region; M47.812 Spondylosis without myelopathy or radiculopathy, cervical region; M47.816 Spondylosis without myelopathy or radiculopathy, lumbar region; M47.814 Spondylosis without myelopathy or radiculopathy, thoracic region; R53.1 Weakness; M54.5 Low back pain; G89.29 Other chronic pain; B95.62 Methicillin resistant Staphylococcus aureus infection as the cause of diseases classified elsewhere; T87.81 Dehiscence of amputation stump; Z16.39 Resistance to other specified antimicrobial drug; Z86.718 Personal history of other venous thrombosis and embolism; Z79.01 Long term (current) use of anticoagulants; Z98.52 Vasectomy status; Z98.890 Other specified postprocedural states; Z87.891 Personal history of nicotine dependence; Z99.3 Dependence on wheelchair; Z79.82 Long term (current) use of aspirin; Z79.899 Other long term (current) drug therapy; Z86.711 Personal history of pulmonary embolism; Y83.5 Amputation of limb(s) as the cause of abnormal reaction of the patient, or of later complication, without mention of misadventure at the time of the procedure
CPT/HCPCS: 36415; 36416; 80048; 80053; 84550; 85025; 87070; 87077; 87186; 87205; 87324; 87449; 87493; 90471; 90686; G0008; G8978-GP-CM; G8979-GP-CJ